=== PATIENT | female | born 1940 | race Caucasian/White ===

== ENCOUNTER 2015-12-17 09:00 | Inpatient (IN) | payer MEDICAID, OTHER ==
[~2015-12-17] VITALS: Ht 152.4 cm; Wt 64.0 kg
[2016-02-24] MEDS ORDERED: Metronidazole 500 MG in NS 100 ML IVPB SCH (07:00)
[2016-02-25] MEDS ORDERED: D5-NS + KCL 20 MEQ 1,000 ML IV SCH (07:00)
[2016-02-25] MEDS ORDERED: CEFAZOLIN 2 GM/50 ML (PMX) 50 ML IVPB SCH (07:00)
[2016-06-08] VITALS (13 sets, daily range): BP systolic 127–173; BP diastolic 58–97; PULSE 45–96; RESP 0–34; Ht 152.4 cm; Wt 64.0 kg
[2016-06-08] MEDS ORDERED: D5-NS + KCL 20 MEQ 1,000 ML IV SCH (08:00)
[2016-06-08] MEDS ORDERED: CEFAZOLIN 2 GM/50 ML (PMX) 50 ML IVPB ONE (08:00)
[2016-06-08] MEDS ORDERED: metroNIDAZOLE 500 MG/NS (PMX) 100 ML IVPB ONE ×2 (08:00→10:04)
[2016-06-08] MEDS ORDERED: ATOR80TA75 PO (09:04)
[2016-06-08] MEDS ORDERED: GLU5XL PO (09:04)
[2016-06-08] MEDS ORDERED: FOLI-49 PO (09:04)
[2016-06-08] MEDS ORDERED: LISI-313 PO (09:04)
[2016-06-08] MEDS ORDERED: QUET25TA26 PO (09:04)
[2016-06-08] MEDS ORDERED: METF1000 PO (09:04)
[2016-06-08] MEDS ORDERED: FER325 PO (09:04)
[2016-06-08] MEDS ORDERED: ATEN-51 PO (09:04)
[2016-06-08] MEDS ORDERED: MIDAZOLAM 1 MG/ML 2 ML INJ ONE (09:48)
[2016-06-08] MEDS ORDERED: CEFAZOLIN 1 GM INJ ONE ×2 (10:04→13:17)
[2016-06-08] MEDS ORDERED: ROCURONIUM 50 MG INJ ONE (10:04)
[2016-06-08] MEDS ORDERED: PROPOFOL 100 ML ONE (10:04)
[2016-06-08] MEDS ORDERED: METHYLENE BLUE 1% 10 ML INJ ONE ×2 (10:14)
[2016-06-08] MEDS ORDERED: VASOPRESSIN 20 UNITS INJ ONE (10:14)
[2016-06-08] MEDS ORDERED: THROMBIN 5000 UNIT VIAL ONE (10:14)
--- NOTE | 2016-06-08 11:17 | HP ---
Date/Time of Note Date/Time of Note DATE: 06/08/16 TIME: 11:16 Assessment/Plan VTE Prophylaxis VTE Prophylaxis Intervention: SCD's Lines/Catheters [facility]from [facility] Saline Lock HPI/ROS Admit Date/Time Admit Date/Time Jun 08, 2016 at 05:37 ROS Isaiah Flynn M.D. 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 Medical history/ROS: DM. Surgical history: Umbilical hernia 7 yrs ago. Flu no, declined, Pneumococcal no, declined Colonoscopy: yes, gardisil Colonoscopy Medications: 10/26/15 atorvastatin 80 mg tablet 1 tablet by mouth DAILY 10/26/15 ferrous sulfate 325 mg (65 mg iron) tablet 1 tablet by mouth DAILY 11/18/15 Flagyl 250 mg tablet 1 tablet by mouth as directed 1 po qd x 2 days paty 10/26/15 folic acid 1 mg tablet 1 tablet by mouth DAILY 10/26/15 glipizide 10 mg tablet 1 tablet by mouth DAILY 11/18/15 Golytely 236 gram-22.74 gram-6.74 gram-5.86 gram oral solution 1 mL by mouth as directed Begin Bowel Prep on DECE 11/18/15 Levaquin 250 mg tablet 1 tablet by mouth as directed 1 po qd x 2 days paty 10/26/15 lisinopril 5 mg tablet 1 tablet by mouth DAILY 10/26/15 metformin 500 mg tablet 2 tablet by mouth DAILY 11/18/15 Barstow 10 mg-325 mg tablet 1 tablet by mouth Q8h HARD COPY RX ATTACHED 10/26/15 omeprazole 20 mg capsule,delayed release 1 capsule by mouth DAILY Allergies: No active allergies recorded Family History: Noncontributory Social History: Noncontributory Review of Systems: Negative except for above noted Physical Examination Vitals (06/06/2016): Weight 144, Height 58.75, BP 130/80, BMI 30.1. General: Alert. HEENT: Pupils are equal, round, reactive to light and accommodation. Neck: Supple with no masses of lymphadenopathy. Breast: Deferred due to recent examination and responsibility of primary care physician. Chest: Clear to auscultation and percussion with no rales, ronchi, or wheeze. Heart: Normal rhythm with no murmur. Abdominal exam: nontender, nondistended, no masses, no ascites. Pelvic exam: Uterus enlarged and globular, no masses or cul-de-sac nodularity noted Rectal: confirmatory with pelvic exam. Neurological: Grossly intact Assessment: endometrial cancer stage to be determined Plan: Laparoscopic Type 2 Hyst, BSO, Pelvic and Aortic LND . All risks and benefits of this procedure have been discussed in detail with the patient, as well as alternative treatment strategies and their implications. The patient is aware that there is some possibility of a blood transfusion and its associated risks and benefits. She wishes to proceed and gives her informed consent. Isaiah Flynn M.D. PMH/Family/Social Social History Smoking Status: Never smoker Exam/Review of Systems Vital Signs Vitals Vital Signs Date Time Temp Pulse Resp B/P Pulse Ox O2 Delivery O2 Flow Rate FiO2 06/08/16 09:18 97.6 70 18 168/76 99 Room Air Medications Medications Current Medications Potassium Chloride/Dextrose/ Sod Cl (D5-NS + KCl 20 Meq) 1,000 ml @ 100 mls/hr Q10H IV ; Start 06/08/16 at 08:00; Stop 06/08/16 at 17:59 ISAIAH FLYNN MD Jun 08, 2016 11:17
--- NOTE | 2016-06-08 11:18 | HPN ---
Date/Time of Note Date/Time of Note DATE: 06/08/16 TIME: 11:17 Interval H&P Admission Note Pt. seen H&P reviewed: No system changes NONA MORENO MD Jun 08, 2016 11:18
[2016-06-08] MEDS ORDERED: ROPIVACAINE 0.2% 20 ML VIAL ONE (11:48)
[2016-06-08] MEDS ORDERED: ACETAMINOPHEN 1000MG/100ML IV 100 ML ONE (13:17)
[2016-06-08] MEDS ORDERED: morphine SULFATE/PF (10 MG/10 ML) INJ ONE (14:15)
[2016-06-08] MEDS ORDERED: NALBUPHINE HCL (10 MG/1 ML) INJ IV PRN (15:30)
[2016-06-08] MEDS ORDERED: MEPERIDINE 25 MG INJ IV PRN (15:30)
[2016-06-08] MEDS ORDERED: NALOXONE (0.4 MG/ML) INJ IV PRN (15:30)
[2016-06-08] MEDS ORDERED: HYDROmorphONE 1 MG/ML SYG IV PRN ×2 (15:30)
[2016-06-08] MEDS ORDERED: morphine 4 MG/ML VIAL IV PRN (15:30)
[2016-06-08] MEDS ORDERED: LABETALOL HCL 20MG INJ IV PRN (15:30)
[2016-06-08] MEDS ORDERED: ONDANSETRON 4 MG INJ IV PRN ×2 (15:30→16:00)
[2016-06-08] MEDS ORDERED: traMADol 50 MG TAB PO PRN (15:30)
[2016-06-08] MEDS ORDERED: EPHEDrine SULFATE 50 MG/5 ML SYG IV PRN (15:30)
[2016-06-08] MEDS ORDERED: hydrALAzine 20 MG INJ IV PRN (15:30)
[2016-06-08] MEDS ORDERED: HALOPERIDOL 5 MG INJ IV PRN (15:30)
[2016-06-08] MEDS ORDERED: ALBUMIN HUMAN 5% 250 ML IV PRN (15:30)
[2016-06-08] MEDS ORDERED: DIPHENHYDRAMINE 50 MG INJ IV PRN ×2 (15:30)
[2016-06-08] MEDS ORDERED: morphine 2 MG INJ IV PRN (15:30)
[2016-06-08 16:32] LABS: ADD SCAN DIFF NO
[2016-06-08 16:34] LABS: ABNORMAL IP MESSAGE 1; BASOPHILS % 0.1 % (0.0-2.0); EOSINOPHILS % 0.5 % (0.0-7.0); HEMATOCRIT 28.7 % (37.0-47.0); HEMOGLOBIN 9.1 g/dl (12.0-16.0); LYMPHOCYTES # 0.6 10^3/ul (0.8-2.9); LYMPHOCYTES % 7.6 % (15.0-51.0); MEAN CORPUSCULAR HGB CONC 31.7 g/dl (32.0-37.0); MEAN PLATELET VOLUME 9.9 fl (7.4-10.4); MONOCYTE # 0.4 10^3/ul (0.3-0.9); MONOCYTES % 4.7 % (0.0-11.0); NEUTROPHIL # 6.5 10^3/ul (1.6-7.5); NEUTROPHILS % 86.7 % (39.0-77.0); PLATELET COUNT 101 10^3/UL (140-415); RED CELL DISTRIBUTION WIDTH 16.2 % (11.5-14.5); WHITE BLOOD COUNT 7.5 10^3/ul (4.8-10.8)
[2016-06-08] MEDS: D5-LR + KCL 20 MEQ 1,000 ML IV SCH (17:56)
[2016-06-08] MEDS: CEFAZOLIN 1 GM/50 ML (PMX) 50 ML IVPB SCH (18:00)
[2016-06-08 18:17] LABS: CALCIUM 7.7 mg/dl (8.4-10.2); CREATININE 0.78 mg/dl (0.44-1.00); POTASSIUM 4.1 mmol/L (3.5-5.1)
[2016-06-08] MEDS ORDERED: GLUCOSE GEL 15 GRAM TUBE PO PRN ×2 (19:00)
[2016-06-08] MEDS ORDERED: DEXTROSE 50% 50 ML SYRINGE IV PRN ×2 (19:00)
[2016-06-08] MEDS ORDERED: GLUCAGON 1 MG INJ IM PRN (19:00)
[2016-06-08] MEDS ORDERED: GLUCOSE GEL 15 GRAM TUBE BUCCAL PRN (19:00)
--- NOTE | 2016-06-08 19:01 | CONS ---
DATE OF ADMISSION: 06/08/2016 DATE OF CONSULTATION: 06/08/2016 TYPE OF CONSULTATION: Medical consult note. CHIEF COMPLAINT: A 76-year-old female status post hysterectomy for endometrial cancer, presumably s tage IV. This is a medical consult note. 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 Most of the informatio n obtained from the chart documentation as the patient is presently postop and unable to provide a f ull HPI. The patient a few hours ago underwent a hysterectomy. The patient is presently on pain co ntrol medications with morphine and tramadol. She is on IV fluids as well. A full review of system s could not be obtained. She underwent a pelvic aortic lymph node dissection, laparoscopic type 2, hysterectomy, BSO. When the patient was in the operating room today, she did have some symptoms of bradycardia, heart rate went down to the 40s. Presently the heart rate is stable. PAST MEDICAL HISTORY: As stated above. ALLERGIES: NO KNOWN DRUG ALLERGIES. HOME MEDICINES: 1. Ferrous sulfate 325 mg b.i.d. 2. Atenolol 25 mg daily. 3. Atorvastatin 80 mg at bedtime. 5. Lisinopril 5 mg daily. 6. Seroquel 25 mg at bedtime. 7. Glipizide XL 10 mg daily. 8. Metformin 1000 mg with breakfast. 9. Folic acid 1 mg daily. PAST SURGICAL HISTORY: She had an umbilical hernia repair 7 years ago. SOCIAL HISTORY: Noncontributory. FAMILY HISTORY: Noncontributory. PHYSICAL EXAMINATION: VITAL SIGNS: T-max 98.5, pulse 47 to 64, respirations 16 to 20, blood pressure 128 to 144 systolic over 69 to ____diastolic, saturating at 98% on simple mask. GENERAL: The patient is lying in bed, simple mask in place, lethargic, but no acute distress. HEENT: Pupils equal, round, react to light. Extraocular muscles intact. NECK: Supple, no thyromegaly. LUNGS: Clear to auscultation bilaterally. CARDIOVASCULAR: S1, S2 heard. No rubs or gallops. ABDOMEN: Nondistended hypoactive bowel sounds. Incision is covered in bandages, appear to be clean , dry, and intact. MUSCULOSKELETAL: No lower extremity edema bilaterally. NEUROLOGIC: No focal deficits. LABORATORIES: Basic metabolic panel was normal. CBC is normal, including hemoglobin 9.1, hematocri t 28.7, platelets are 101. ASSESSMENT AND PLAN: A 76-year-old female status post pelvic and aortic lymph node dissection, hyst erectomy, bilateral salpingo-oophorectomy for endometrial cancer stage IV. 1. Status post surgical resection for endometrial cancer. Again, follow up postop recommendations from primary care team and NURSE EXECUTIVE/ONC team, which include pain control medications, IV fluids and labs and any physical therapy. 2. Essential hypertension. Blood pressure is presently stable. Continue to monitor for now. Cons ider restarting some of the patient's home medicines as well, although will hold JOHNATHAN inhibitor for n ow. 3. Type 2 diabetes, again continue sliding scale insulin, hold her p.o. diabetic medications from [facility]. 4. History of coronary artery disease. Continue to monitor for now. 5. History of prior stroke, no apparent present issues. Continue to monitor for now. 6. History of atrial fibrillation. Continue monitoring heart rate on telemetry monitoring. 7. Gastrointestinal prophylaxis. Add low-dose H2 mariana. 8. Deep venous thrombosis prophylaxis. Consider sequential compression devices. We will continue to follow along with you. Dictated By: MISTI MUNOZ Conf#: [id number] DID#: [id number]
[2016-06-08] MEDS ORDERED: INSULIN ASPART [NOVOLOG] 3 ML PEN SC SCH (21:00)
[2016-06-08] MEDS: INSULIN ASPART [NOVOLOG] 3 ML PEN SC SCH (21:11)
[2016-06-08] MEDS ORDERED: SOD CHLORIDE 0.9% 1,000 ML IV ONE (22:30)
[2016-06-08] MEDS: INSULIN GLARGINE [LANtus] 3 ML PEN SC SCH (22:33)
[2016-06-08] MEDS: morphine 2 MG INJ IV PRN (22:59)
[2016-06-09] VITALS (26 sets, daily range): BP systolic 107–168; BP diastolic 51–124; PULSE 57–87; RESP 11–27
[2016-06-09] MEDS: CEFAZOLIN 1 GM/50 ML (PMX) 50 ML IVPB SCH ×3 (01:21→12:31)
[2016-06-09] MEDS ORDERED: ACCU-CHEK XX SCH (02:00)
[2016-06-09] MEDS: ACCU-CHEK XX SCH (02:26)
[2016-06-09] MEDS ORDERED: INSULIN ASPART [NOVOLOG] 3 ML PEN SC ONE (02:30)
[2016-06-09] MEDS: D5-LR + KCL 20 MEQ 1,000 ML IV SCH ×3 (03:03→19:22)
[2016-06-09 05:35] LABS: ADD SCAN DIFF NO
[2016-06-09 05:52] LABS: BASOPHILS % 0.1 % (0.0-2.0); HEMOGLOBIN 12.1 g/dl (12.0-16.0); LYMPHOCYTES # 0.7 10^3/ul (0.8-2.9); LYMPHOCYTES % 5.7 % (15.0-51.0); MEAN CORPUSCULAR HEMOGLOBIN 25.4 pg (29.0-33.0); MEAN CORPUSCULAR VOLUME 81.9 fl (82.0-101.0); MEAN PLATELET VOLUME 11.2 fl (7.4-10.4); MONOCYTE # 0.7 10^3/ul (0.3-0.9); MONOCYTES % 5.3 % (0.0-11.0); NEUTROPHILS % 88.6 % (39.0-77.0); PLATELET COUNT 150 10^3/UL (140-415); RED BLOOD COUNT 4.76 10^6/ul (4.20-5.40); RED CELL DISTRIBUTION WIDTH 16.3 % (11.5-14.5); WHITE BLOOD COUNT 12.4 10^3/ul (4.8-10.8)
[2016-06-09 06:05] LABS: POTASSIUM 4.8 mmol/L (3.5-5.1)
[2016-06-09 06:08] LABS: CREATININE 0.96 mg/dl (0.44-1.00)
[2016-06-09 06:09] LABS: CALCIUM 7.7 mg/dl (8.4-10.2)
[2016-06-09] MEDS: FOLIC ACID 1 MG TAB PO SCH (09:39)
[2016-06-09] MEDS: FAMOTIDINE 20 MG INJ IV SCH (09:39)
--- NOTE | 2016-06-09 09:51 | OPPN ---
Date/Time of Note Date/Time of Note DATE: 06/09/16 TIME: 09:45 Anesthesia Follow up Anesthesia Follow up Respiratory function: WNL Cardiovascular function: WNL Comments POD#1 CHIEF COMPLAINT: A 76-year-old female status post hysterectomy for endometrial cancer, presumably stage IV. 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 Most of the information obtained from the chart documentation as the patient is presently postop and unable to provide a full HPI. The patient a few hours ago underwent a hysterectomy. The patient is presently on pain control medications with morphine and tramadol. She is on IV fluids as well. A full review of systems could not be obtained. She underwent a pelvic aortic lymph node dissection, laparoscopic type 2, hysterectomy, BSO. When the patient was in the operating room today, she did have some symptoms of bradycardia, heart rate went down to the 40s. Presently the heart rate is stable. PAST MEDICAL HISTORY: As stated above. ALLERGIES: NO KNOWN DRUG ALLERGIES. HOME MEDICINES: 1. Ferrous sulfate 325 mg b.i.d. 2. Atenolol 25 mg daily. 3. Atorvastatin 80 mg at bedtime. 5. Lisinopril 5 mg daily. 6. Seroquel 25 mg at bedtime. 7. Glipizide XL 10 mg daily. 8. Metformin 1000 mg with breakfast. 9. Folic acid 1 mg daily. PAST SURGICAL HISTORY: She had an umbilical hernia repair 7 years ago. SOCIAL HISTORY: Noncontributory. FAMILY HISTORY: Noncontributory. She went under combined Epidural-General Anesthesia for Laparoscopic assisted Hysterectomy and Bilateral salpingo-Oophorectomies and Pelvic and para Aortic lymph node dissection. Epidural Duramorph was given for post-op pain control. Patient was admitted in ICU post-op. She is very comfortably sleeping in bed, no pain. No pain medicine was given yesterday, vital signs are stable she is afebrile. She had no apnea. no nausea or vomiting reported, she also tolerated clear liquid diet today. No sensory and motor loss, catheter site clean and intact no erythema noted.No itching reported. Patient will be followed up by the primary team. JULIOCESAR GUTIERREZ MD Jun 09, 2016 09:51
[2016-06-09] MEDS: INSULIN ASPART [NOVOLOG] 3 ML PEN SC SCH ×3 (12:33→21:00)
--- NOTE | 2016-06-09 15:50 | CONS ---
Date/Time of Note Date/Time of Note DATE: 06/09/16 TIME: 15:48 Consult Date/Type/Reason Admit Date/Time Jun 08, 2016 at 05:37 Initial Consult Date Subjective No acute events overnight, tolerating liquid diet. Objective Vital Signs Date Time Temp Pulse Resp B/P Pulse Ox O2 Delivery O2 Flow Rate FiO2 06/09/16 14:00 68 16 124/61 95 Nasal Cannula 06/09/16 10:30 98.2 06/09/16 09:03 2.0 06/09/16 01:51 27 Intake and Output 06/08/16 06/08/16 06/09/16 15:00 23:00 07:00 Intake Total 650 ml 1750 ml Output Total 500 ml 120 ml 221 ml Balance -500 ml 530 ml 1529 ml Exam GENERAL: The patient is lying in bed,no acute distress. HEENT: Pupils equal, round, react to light. Extraocular muscles intact. NECK: Supple, no thyromegaly. LUNGS: Clear to auscultation bilaterally. CARDIOVASCULAR: S1, S2 heard. No rubs or gallops. ABDOMEN: Nondistended hypoactive bowel sounds. Incision is covered in bandages , appear to be clean, dry, and intact. MUSCULOSKELETAL: No lower extremity edema bilaterally. NEUROLOGIC: No focal deficits. Results/Medications Result Diagram: 06/09/16 0400 06/09/16 0400 Results 24 hrs Laboratory Tests Test 06/08/16 16:20 06/08/16 17:36 06/08/16 20:58 06/08/16 22:32 White Blood Count 7.5 Red Blood Count 3.50 L Hemoglobin 9.1 L Hematocrit 28.7 L Mean Corpuscular Volume 82.0 Mean Corpuscular Hemoglobin 26.0 L Mean Corpuscular Hemoglobin Concent 31.7 L Red Cell Distribution Width 16.2 H Platelet Count 101 L Mean Platelet Volume 9.9 Neutrophils % 86.7 H Lymphocytes % 7.6 L Monocytes % 4.7 Eosinophils % 0.5 Basophils % 0.1 Nucleated Red Blood Cells % 0.0 Neutrophils # 6.5 Lymphocytes # 0.6 L Monocytes # 0.4 Eosinophils # 0.0 Basophils # 0.0 Nucleated Red Blood Cells # 0.0 Sodium Level 136 Potassium Level 4.1 Chloride Level 106 Carbon Dioxide Level 25 Anion Gap 9 Blood Urea Nitrogen 20 Creatinine 0.78 Glucose Level 184 Calcium Level 7.7 L Bedside Glucose 229 H 254 H Test 06/09/16 02:22 06/09/16 04:00 06/09/16 12:31 Bedside Glucose 224 H 193 White Blood Count 12.4 #H Red Blood Count 4.76 # Hemoglobin 12.1 # Hematocrit 39.0 # Mean Corpuscular Volume 81.9 L Mean Corpuscular Hemoglobin 25.4 L Mean Corpuscular Hemoglobin Concent 31.0 L Red Cell Distribution Width 16.3 H Platelet Count 150 # Mean Platelet Volume 11.2 H Neutrophils % 88.6 H Lymphocytes % 5.7 L Monocytes % 5.3 Eosinophils % 0.0 Basophils % 0.1 Nucleated Red Blood Cells % 0.0 Neutrophils # 11.0 H Lymphocytes # 0.7 L Monocytes # 0.7 Eosinophils # 0.0 Basophils # 0.0 Nucleated Red Blood Cells # 0.0 Sodium Level 138 Potassium Level 4.8 Chloride Level 108 Carbon Dioxide Level 23 Anion Gap 12 Blood Urea Nitrogen 21 H Creatinine 0.96 Glucose Level 248 H Calcium Level 7.7 L Medications Current Medications Diphenhydramine HCl (Benadryl) 25 mg Q4H PRN IV PRURITUS Last administered on 07:38; Admin Dose 25 MG; Start 06/08/16 at 15:30 Nalbuphine HCl (Nubain) 10 mg Q4H PRN IV PRURITUS; Start 06/08/16 at 15:30 Naloxone HCl 0.2 mg 0.2 mg Q2M PRN IV FOR RESP RATE 8 OR LESS; Start 06/08/16 at 15:30 Potassium Cl/ Dextrose/Lact Ringer's (D5-Lr + KCl 20 Meq) 1,000 ml @ 100 mls/ hr Q10H IV Last administered on 06/09/16 03:03; Admin Dose 100 MLS/HR; Start 06/08/16 at 16:00 Ondansetron HCl 4 mg 4 mg Q6H PRN IV NAUSEA AND/OR VOMITING Last administered on 06/08/16 23:06; Admin Dose 4 MG; Start 06/08/16 at 16:00 Cefazolin Sodium (Ancef 1 Gm/50 ml (Pmx)) 50 ml @ 100 mls/hr Q6 IVPB Last administered on 06/09/16 12:31; Admin Dose 100 MLS/HR; Start 06/08/16 at 18:00 ; Stop 06/09/16 at 17:59 Tramadol HCl (Ultram) 50 mg Q6H PRN PO PAIN; Start 06/08/16 at 15:30 Morphine Sulfate (morphine) 2 mg Q3H PRN IV PAIN Last administered on 22:59; Admin Dose 2 MG; Start 06/08/16 at 15:30 Diagnostic Test (Pha) (Accu-Chek) 1 ea 02 XX Last administered on 06/09/16 02: 26; Admin Dose 1 EA; Start 06/09/16 at 02:00 Miscellaneous Information 1 ea NOTE XX ; Start 06/08/16 at 19:00 Glucose (Glutose) 15 gm Q15M PRN PO DECREASED GLUCOSE; Start 06/08/16 at 19:00 Glucose (Glutose) 22.5 gm Q15M PRN PO DECREASED GLUCOSE; Start 06/08/16 at 19: 00 Dextrose (D50w Syringe) 25 ml Q15M PRN IV DECREASED GLUCOSE; Start 06/08/16 at 19:00 Dextrose (D50w Syringe) 50 ml Q15M PRN IV DECREASED GLUCOSE; Start 06/08/16 at 19:00 Glucagon (Glucagen) 1 mg Q15M PRN IM DECREASED GLUCOSE; Start 06/08/16 at 19:00 Glucose (Glutose) 15 gm Q15M PRN BUCCAL DECREASED GLUCOSE; Start 06/08/16 at 19 :00 Famotidine (Pepcid Iv) 20 mg DAILY IV Last administered on 06/09/16 09:39; Admin Dose 20 MG; Start 06/09/16 at 09:00 Folic Acid (Folic Acid) 1 mg DAILY PO Last administered on 06/09/16 09:39; Admin Dose 1 MG; Start 06/09/16 at 09:00 Insulin Glargine (Lantus) 10 unit DAILY@20 SC Last administered on 06/08/16 22 :33; Admin Dose 10 UNIT; Start 06/08/16 at 21:30 Clonidine (Catapres) 0.1 mg Q6H PRN PO SBP > 160; Start 06/09/16 at 01:00 Assessment/Plan Chief Complaint/Hosp Course ASSESSMENT AND PLAN: 76-year-old female status post pelvic and aortic lymph node dissection, hysterectomy, bilateral salpingo-oophorectomy for endometrial cancer stage IV. 1. Status post surgical resection for endometrial cancer - POD # 1. 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 2. Essential hypertension. Blood pressure is presently stable. - Continue to monitor for now. - Consider restarting some of the patient's home medicines as well, although will hold JOHNATHAN inhibitor for now. 3. Type 2 diabetes - FS stable - again continue sliding scale insulin, lantus for now - holding her p.o. diabetic medications from home. 4. History of coronary artery disease. - Continue to monitor for now. 5. History of prior stroke, no apparent present issues. - Continue to monitor for now. 6. History of atrial fibrillation - HR stable - Continue monitoring heart rate on telemetry monitoring. 7. Gastrointestinal prophylaxis. - H2 mariana. 8. Deep venous thrombosis prophylaxis - Sequential compression devices. We will continue to follow along with you. Critical care time spent today = 40 min. Problems: MISTI MADISON Jun 09, 2016 15:50
[2016-06-09] MEDS: INSULIN GLARGINE [LANtus] 3 ML PEN SC SCH (20:16)
[2016-06-09] MEDS ORDERED: ALBUMIN HUMAN 25% 100 ML IV ONE (22:00)
--- NOTE | 2016-06-09 22:23 | PN ---
Date/Time of Note Date/Time of Note DATE: 06/09/16 TIME: 22:20 Assessment/Plan VTE Prophylaxis VTE Prophylaxis Intervention: SCD's Lines/Catheters IV [facility] Peripheral IV Urinary Cath still in place: Yes Assessment/Plan Chief Complaint/Hosp Course endometrial cancer Problems: Assessment/Plan transfer and adv diet Subjective 24 Hr Interval Summary Free Text/Dictation S- + flatus and tolerating current diet. Minimally OOB. O- Resp- even and effortless CVS- NSR Abd- soft NT Ext- NT no edema A- doing well P- transfer 4W or 6W and adv diet Exam/Review of Systems Vital Signs Vitals Vital Signs Date Time Temp Pulse Resp B/P Pulse Ox O2 Delivery O2 Flow Rate FiO2 06/09/16 20:00 65 06/09/16 19:45 97 2.0 27 06/09/16 18:00 18 162/85 06/09/16 17:00 Nasal Cannula 06/09/16 16:00 98.5 Intake and Output 06/08/16 06/08/16 06/09/16 15:00 23:00 07:00 Intake Total 650 ml 1850 ml Output Total 500 ml 120 ml 221 ml Balance -500 ml 530 ml 1629 ml Results Result Diagram: 06/09/16 0400 06/09/16 0400 Results 24 hrs Laboratory Tests Test 06/08/16 22:32 06/09/16 02:22 06/09/16 04:00 06/09/16 12:31 Bedside Glucose 254 H 224 H 193 White Blood Count 12.4 #H Red Blood Count 4.76 # Hemoglobin 12.1 # Hematocrit 39.0 # Mean Corpuscular Volume 81.9 L Mean Corpuscular Hemoglobin 25.4 L Mean Corpuscular Hemoglobin Concent 31.0 L Red Cell Distribution Width 16.3 H Platelet Count 150 # Mean Platelet Volume 11.2 H Neutrophils % 88.6 H Lymphocytes % 5.7 L Monocytes % 5.3 Eosinophils % 0.0 Basophils % 0.1 Nucleated Red Blood Cells % 0.0 Neutrophils # 11.0 H Lymphocytes # 0.7 L Monocytes # 0.7 Eosinophils # 0.0 Basophils # 0.0 Nucleated Red Blood Cells # 0.0 Sodium Level 138 Potassium Level 4.8 Chloride Level 108 Carbon Dioxide Level 23 Anion Gap 12 Blood Urea Nitrogen 21 H Creatinine 0.96 Glucose Level 248 H Calcium Level 7.7 L Test 06/09/16 18:08 06/09/16 20:15 Bedside Glucose 93 121 Medications Medications Current Medications Diphenhydramine HCl (Benadryl) 25 mg Q4H PRN IV PRURITUS Last administered on 07:38; Admin Dose 25 MG; Start 06/08/16 at 15:30 Nalbuphine HCl (Nubain) 10 mg Q4H PRN IV PRURITUS; Start 06/08/16 at 15:30 Naloxone HCl (Narcan) 0.2 mg Q2M PRN IV FOR RESP RATE 8 OR LESS; Start at 15:30 Ondansetron HCl (Zofran Inj) 4 mg Q6H PRN IV NAUSEA AND/OR VOMITING Last administered on 06/08/16 23:06; Admin Dose 4 MG; Start 06/08/16 at 16:00 Tramadol HCl (Ultram) 50 mg Q6H PRN PO PAIN; Start 06/08/16 at 15:30 Morphine Sulfate (morphine) 2 mg Q3H PRN IV PAIN Last administered on 22:59; Admin Dose 2 MG; Start 06/08/16 at 15:30 Diagnostic Test (Pha) (Accu-Chek) 1 ea 02 XX Last administered on 06/09/16 02: 26; Admin Dose 1 EA; Start 06/09/16 at 02:00 Miscellaneous Information 1 ea NOTE XX ; Start 06/08/16 at 19:00 Glucose (Glutose) 15 gm Q15M PRN PO DECREASED GLUCOSE; Start 06/08/16 at 19:00 Glucose (Glutose) 22.5 gm Q15M PRN PO DECREASED GLUCOSE; Start 06/08/16 at 19: 00 Dextrose (D50w Syringe) 25 ml Q15M PRN IV DECREASED GLUCOSE; Start 06/08/16 at 19:00 Dextrose (D50w Syringe) 50 ml Q15M PRN IV DECREASED GLUCOSE; Start 06/08/16 at 19:00 Glucagon (Glucagen) 1 mg Q15M PRN IM DECREASED GLUCOSE; Start 06/08/16 at 19:00 Glucose (Glutose) 15 gm Q15M PRN BUCCAL DECREASED GLUCOSE; Start 06/08/16 at 19 :00 Famotidine (Pepcid Iv) 20 mg DAILY IV Last administered on 06/09/16 09:39; Admin Dose 20 MG; Start 06/09/16 at 09:00 Folic Acid (Folic Acid) 1 mg DAILY PO Last administered on 06/09/16 09:39; Admin Dose 1 MG; Start 06/09/16 at 09:00 Insulin Glargine (Lantus) 10 unit DAILY@20 SC Last administered on 06/09/16 20 :16; Admin Dose 10 UNIT; Start 06/08/16 at 21:30 Clonidine 0.1 mg 0.1 mg Q6H PRN PO SBP > 160 Last administered on 06/09/16 21: 47; Admin Dose 0.1 MG; Start 06/09/16 at 01:00 Potassium Cl/ Dextrose/Lact Ringer's 1,000 ml @ 50 mls/hr Q20H IV Last administered on 06/09/16 19:22; Admin Dose 50 MLS/HR; Start 06/09/16 at 18:00 Albumin Human (Albumin Human 25%) 100 ml @ 100 mls/hr ONCE ONCE IV Last administered on 06/09/16 21:49; Admin Dose 100 MLS/HR; Start 06/09/16 at 22:00 ; Stop 06/09/16 at 22:59 NONA MORENO MD Jun 09, 2016 22:23
[2016-06-10] VITALS (12 sets, daily range): BP systolic 119–176; BP diastolic 60–117; PULSE 63–75; RESP 18–31
[2016-06-10] MEDS: ACCU-CHEK XX SCH (00:49)
[2016-06-10] MEDS ORDERED: FUROSEMIDE 20 MG INJ IV ONE (05:30)
[2016-06-10 05:58] LABS: ADD SCAN DIFF NO
[2016-06-10 06:07] LABS: BASOPHILS % 0.1 % (0.0-2.0); EOSINOPHILS # 0.1 10^3/ul (0.0-0.5); EOSINOPHILS % 1.1 % (0.0-7.0); HEMATOCRIT 37.9 % (37.0-47.0); HEMOGLOBIN 11.8 g/dl (12.0-16.0); LYMPHOCYTES % 10.7 % (15.0-51.0); MEAN CORPUSCULAR HEMOGLOBIN 25.6 pg (29.0-33.0); MEAN CORPUSCULAR HGB CONC 31.1 g/dl (32.0-37.0); MEAN CORPUSCULAR VOLUME 82.2 fl (82.0-101.0); MEAN PLATELET VOLUME 11.1 fl (7.4-10.4); MONOCYTE # 0.6 10^3/ul (0.3-0.9); MONOCYTES % 6.5 % (0.0-11.0); NEUTROPHIL # 7.6 10^3/ul (1.6-7.5); NEUTROPHILS % 81.3 % (39.0-77.0); PLATELET COUNT 122 10^3/UL (140-415); RED BLOOD COUNT 4.61 10^6/ul (4.20-5.40); RED CELL DISTRIBUTION WIDTH 16.6 % (11.5-14.5); WHITE BLOOD COUNT 9.4 10^3/ul (4.8-10.8)
[2016-06-10 06:22] LABS: POTASSIUM 4.3 mmol/L (3.5-5.1)
[2016-06-10 06:25] LABS: CREATININE 0.95 mg/dl (0.44-1.00)
[2016-06-10] MEDS: FAMOTIDINE 20 MG INJ IV SCH (08:44)
[2016-06-10] MEDS: hydrALAzine 20 MG INJ IV PRN (08:44)
[2016-06-10] MEDS: FOLIC ACID 1 MG TAB PO SCH (08:45)
[2016-06-10] MEDS: INSULIN ASPART [NOVOLOG] 3 ML PEN SC SCH ×4 (08:50→20:54)
[2016-06-10] MEDS: morphine 2 MG INJ IV PRN (09:41)
[2016-06-10] MEDS: D5-LR + KCL 20 MEQ 1,000 ML IV SCH (11:45)
--- NOTE | 2016-06-10 13:07 | CONS ---
Date/Time of Note Date/Time of Note DATE: 06/10/16 TIME: 13:06 Consult Date/Type/Reason Admit Date/Time Jun 08, 2016 at 05:37 Objective Vital Signs Date Time Temp Pulse Resp B/P Pulse Ox O2 Delivery O2 Flow Rate FiO2 06/10/16 11:30 98.0 75 19 132/60 98 06/10/16 09:00 Nasal Cannula 2.0 06/10/16 05:29 27 Intake and Output 06/09/16 06/09/16 06/10/16 15:00 23:00 07:00 Intake Total 990 ml 630 ml 400 ml Output Total 224 ml 186 ml 725 ml Balance 766 ml 444 ml -325 ml Exam GENERAL: The patient is lying in bed,no acute distress. HEENT: Pupils equal, round, react to light. Extraocular muscles intact. NECK: Supple, no thyromegaly. LUNGS: Clear to auscultation bilaterally. CARDIOVASCULAR: S1, S2 heard. No rubs or gallops. ABDOMEN: Nondistended hypoactive bowel sounds. Incision is covered in bandages , appear to be clean, dry, and intact. MUSCULOSKELETAL: No lower extremity edema bilaterally. NEUROLOGIC: No focal deficits. Results/Medications Result Diagram: 06/10/16 0543 06/10/16 0543 Results 24 hrs Laboratory Tests Test 06/09/16 18:08 06/09/16 20:15 06/10/16 05:43 06/10/16 07:54 Bedside Glucose 93 121 167 White Blood Count 9.4 # Red Blood Count 4.61 Hemoglobin 11.8 L Hematocrit 37.9 Mean Corpuscular Volume 82.2 Mean Corpuscular Hemoglobin 25.6 L Mean Corpuscular Hemoglobin Concent 31.1 L Red Cell Distribution Width 16.6 H Platelet Count 122 L Mean Platelet Volume 11.1 H Neutrophils % 81.3 H Lymphocytes % 10.7 L Monocytes % 6.5 Eosinophils % 1.1 Basophils % 0.1 Nucleated Red Blood Cells % 0.0 Neutrophils # 7.6 H Lymphocytes # 1.0 Monocytes # 0.6 Eosinophils # 0.1 Basophils # 0.0 Nucleated Red Blood Cells # 0.0 Sodium Level 136 Potassium Level 4.3 Chloride Level 107 Carbon Dioxide Level 27 Anion Gap 6 L Blood Urea Nitrogen 18 Creatinine 0.95 Glucose Level 163 Calcium Level 8.0 L Test 06/10/16 11:43 Bedside Glucose 132 Medications Current Medications Diphenhydramine HCl (Benadryl) 25 mg Q4H PRN IV PRURITUS Last administered on 07:38; Admin Dose 25 MG; Start 06/08/16 at 15:30 Nalbuphine HCl (Nubain) 10 mg Q4H PRN IV PRURITUS; Start 06/08/16 at 15:30 Naloxone HCl (Narcan) 0.2 mg Q2M PRN IV FOR RESP RATE 8 OR LESS; Start at 15:30 Ondansetron HCl (Zofran Inj) 4 mg Q6H PRN IV NAUSEA AND/OR VOMITING Last administered on 06/08/16 23:06; Admin Dose 4 MG; Start 06/08/16 at 16:00 Tramadol HCl (Ultram) 50 mg Q6H PRN PO PAIN; Start 06/08/16 at 15:30 Morphine Sulfate (morphine) 2 mg Q3H PRN IV PAIN Last administered on 09:41; Admin Dose 2 MG; Start 06/08/16 at 15:30 Diagnostic Test (Pha) (Accu-Chek) 1 ea 02 XX Last administered on 06/09/16 02: 26; Admin Dose 1 EA; Start 06/09/16 at 02:00 Miscellaneous Information 1 ea NOTE XX ; Start 06/08/16 at 19:00 Glucose (Glutose) 15 gm Q15M PRN PO DECREASED GLUCOSE; Start 06/08/16 at 19:00 Glucose (Glutose) 22.5 gm Q15M PRN PO DECREASED GLUCOSE; Start 06/08/16 at 19: 00 Dextrose (D50w Syringe) 25 ml Q15M PRN IV DECREASED GLUCOSE; Start 06/08/16 at 19:00 Dextrose (D50w Syringe) 50 ml Q15M PRN IV DECREASED GLUCOSE; Start 06/08/16 at 19:00 Glucagon (Glucagen) 1 mg Q15M PRN IM DECREASED GLUCOSE; Start 06/08/16 at 19:00 Glucose (Glutose) 15 gm Q15M PRN BUCCAL DECREASED GLUCOSE; Start 06/08/16 at 19 :00 Famotidine (Pepcid Iv) 20 mg DAILY IV Last administered on 06/10/16 08:44; Admin Dose 20 MG; Start 06/09/16 at 09:00 Folic Acid (Folic Acid) 1 mg DAILY PO Last administered on 06/10/16 08:45; Admin Dose 1 MG; Start 06/09/16 at 09:00 Insulin Glargine (Lantus) 10 unit DAILY@20 SC Last administered on 06/09/16 20 :16; Admin Dose 10 UNIT; Start 06/08/16 at 21:30 Clonidine 0.1 mg 0.1 mg Q6H PRN PO SBP > 160 Last administered on 06/10/16 07: 23; Admin Dose 0.1 MG; Start 06/09/16 at 01:00 Potassium Cl/ Dextrose/Lact Ringer's (D5-Lr + KCl 20 Meq) 1,000 ml @ 50 mls/hr Q20H IV Last administered on 06/10/16 11:45; Admin Dose 50 MLS/HR; Start 06/09 at 18:00 Hydralazine HCl (Apresoline) 10 mg Q4H PRN IV elevated bp Last administered on 06/10/16 08:44; Admin Dose 10 MG; Start 06/10/16 at 08:00 Assessment/Plan Chief Complaint/Hosp Course ASSESSMENT AND PLAN: 76-year-old female status post pelvic and aortic lymph node dissection, hysterectomy, bilateral salpingo-oophorectomy for endometrial cancer stage IV. 1. Status post surgical resection for endometrial cancer - POD # 2. - follow up postop recommendations from primary care team and OFFICE RN/ONC team, which include pain control medications, IV fluids and labs and any physical therapy. 2. Essential hypertension. Blood pressure is presently stable. - Continue to monitor for now. - Consider restarting some of the patient's home medicines as well, although will hold JOHNATHAN inhibitor for now. 3. Type 2 diabetes - FS stable - again continue sliding scale insulin, lantus for now - holding her p.o. diabetic medications from home. 4. History of coronary artery disease. - Continue to monitor for now. 5. History of prior stroke, no apparent present issues. - Continue to monitor for now. 6. History of atrial fibrillation - HR stable - Continue monitoring heart rate on telemetry monitoring. 7. Gastrointestinal prophylaxis. - H2 mariana. 8. Deep venous thrombosis prophylaxis - Sequential compression devices. We will continue to follow along with you. Critical care time spent today = 40 min. Problems: MISTI MADISON Jun 10, 2016 13:07
[2016-06-10] MEDS: INSULIN GLARGINE [LANtus] 3 ML PEN SC SCH (20:53)
--- NOTE | 2016-06-10 23:07 | OPR ---
Date/Time of Note Date/Time of Note DATE: 06/10/16 TIME: 23:06 Operative Report Free Text/Dictation OPERATIVE REPORT [facility] Name: Lisandra Coyle Medical Date: 06/08/16 Preoperative Diagnosis: 1-Endometrial cancer grade 1 2- Possible cervical involvement Postoperative Diagnosis: Endometrial cancer with final pathology pending Procedures: 1- Type 2 laparoscopic hysterectomy with bilateral salpingoophorectomy 2- Laparoscopic pelvic and aortic lymph node dissection 3- Minilaparotomy Surgeon: Dr. Flynn Beauty Shop Manager: Dr. Levy Anaesthesia: General with regional Indications for Procedure: This 76 year old patient had a grade 1 endometrial cancer without evidence of metastatic disease preoperatively but with a possible positive ECC and after discussions of options with risks and benefits it was determined that a laparoscopic hysterectomy type 2 with bilateral salpingoophorectomy and pelvic/aortic lymph node dissection would be completed for the purposes of treatment and possibly planning additional adjuvant therapy. The pelvic and LND was performed in lieu of final grading not being equivalent to preoperative D&C grade 18-25% of the time and frozen section not being more that 80% reliable in determining grade and depth of invasion; therefore complete staging is performed to determine postoperative management unless there is a significant contraindication. Intraoperative Findings and Summary of Procedure: Name: Lisandra Coyle Medical After placing the Trocars and exploration we noted and enlarged uterus with some fibroids with significant adhesions of the adnexia to the sidewalls. The TLH/BSO was then performed without incident but required somewhat of a ureteral dissection due to anatomic issues of the adnexia adherent to the sidewalls and uterine enlargement due to fibroids, with the laparoscopic LND being subsequently performed with a finding of grossly negative nodes pathology pending. The uterus was removed with a minilaparotomy due to a long narrow vagina. The patient will stay a minimum of one night to observe for recovery of from anesthesia and confirm stable hemoglobin and hematocrit with the necessity of confirmation of some GI recovery and probably need an addition night as well. Findings and Procedure: After being prepped and draped in the usual manner an EEA sizer and pneumo- occluder was inserted vaginally. A 5-millimeter trocar was then placed periumbilically without incident. Subsequently, we insufflated and placed two 12- millimeter trocars laterally and a 12-millimeter trocar suprapubically, as well as an additional 5-mm trocar cephlad to the umbilicus. At this time multiple pelvic adhesions were lysed with sharp dissection and the Omni if not adjacent to serosa. Subsequently we explored and noted a somewhat enlarged fibroid uterus with adnexia adherent to the sidewalls due to apparent inflammation and old scar tissue. Initially the right round ligament was cauterized and transected with the Thunderbeat and the retroperitoneal space further opened parallel to the IP ligament an laterally with the same devise. The right ureter was identified and due to the aforementioned distortion from adherent adnexia was dissected laterally with the Omni and the endo-dissector. After lateralizing the ureter the uterine artery was identified and cauterized and transected with the Thunderbeat adjacent to the hypogastric artery due to the uterine enlargement and hypervascularity and the intention to do a type 2 procedure lateral to the ureter. Hence the ureter was further dissected and the space developed and, a space was developed the [facility] and the right IP ligament was cauterized and transected with a Thunderbeat after which the uterus was retracted medially and the bladder flap was partly developed with the Gyrus bipolar cutting forceps and the Omni. We then used a 10-mm ratcheted endo-grasper placed through the 12-mm suprapubic trocar to manipulate the uterus and with the EEA sizer uterus was retracted and left round ligament was cauterized and transected with the Thunderbeat and the retroperitoneal space further opened parallel to the IP ligament an laterally with the same devise. The left ureter was identified and due to the aforementioned distortion was dissected laterally with the Omni and the endo- dissector as done contralaterally. After lateralizing the ureter the uterine artery was identified and cauterized with the Thunderbeat adjacent to the hypogastric artery and cut with the ureter visualized, after which the ureter was further dissected and the needed space developed. Hence, a space was developed in the broad ligament and the left IP ligament was cauterized and transected with a Thunderbeat after which the uterus was retracted medially, allowing development or the bladder flap uneventfully with a Thunderbeat and blunt dissection. Subsequently, the right uterine artery was transected distally with a Thunderbeat perpendicular to the distal lower uterine segment and the Cardinal ligament and utero-sacral ligament were both transected with an Omni and Thunderbeat parallel to the lower uterine segment and cervix. An identical series of steps were taken on the left side. The anterior and posterior colpotomies were accomplished with a Thunderbeat anteriorly and posteriorly, and continued around the sides as the specimen was not removed through the vagina as it was narrow. The vagina was closed with interrupted 0 Vicryl suture and continuous 2-0 v-lock suture. The 12-millimeter trocar site was minimally extended to 3-4 cm midline to a minilaparotomy with sharp dissection and an electrocautery and uterus was then the specimen was removed intact. The incision was partly closed with interrupted 0- Vicryl suture, after which the 12-millimeter trocar was reinserted. At this time the frozen section returned grade 1 uncertain depth of invasion and the pelvic and aortic LND were completed after confirming hemostasis. Initially a fan retractor was used for exposure and secured to the Dereck arm and all lymph node tissue adjacent to the right external Name: [facility] iliac artery and vein, hypogastric artery and vein, as well as obturator fossa were removed with sharp and blunt dissection, using the Thunderbeat or Gyrus bipolar Omni for hemostasis and lymphostasis. The rowdy tissue was grasped and subsequently placed under tractions with the Omni and the Thunderbeat then being used for the hemostasis and lymphostasis in the process of removal. The dissection was continued to include rowdy tissue adjacent to the common iliac vessels. The obturator nerve was identified and all adjacent rowdy tissue removed with blunt dissection, with the Thunderbeat or Gyrus bipolar Omni used for lymphostasis and hemostasis as needed. The fan retractors were adjusted in that a suprapubically placed fan retracted the broad ligament and ureter with ileum while the right lateral trocar was used for a fan to retract the cecum and ascending colon allowing any rowdy tissue adjacent to the vena cava, as well as aorto-caval nodes to be removed using identical technique. [employer] vessels were addressed with the Thunderbeat or Gyrus bipolar Omni. At this time we placed the fan retractors for contralateral exposure. Subsequently, all lymph node tissue adjacent to the left external iliac artery and vein, hypogastric artery and vein, as well as obturator fossa were removed with sharp and blunt dissection, the Thunderbeat or Gyrus bipolar Omni for hemostasis and lymphostasis, with a technique identical to the right side. The dissection was continued to include rowdy tissue adjacent to the common iliac vessels. Subsequently, the fan retractors were adjusted and any rowdy tissue adjacent to the aorta were dissected using similar technique. After irrigating and assuring hemostasis the 12 millimeter trocars were removed and the fascia was closed with 0-vicryl using an endo-close devise. The gas was removed and the skin of all sites then closed with subcutaneous 5-0 Monocryl suture. The EBL was 100cc and the patient tolerated the procedure well and left the OR in good condition. Isaiah Flynn M.D. ISAIAH FLYNN MD Jun 10, 2016 23:07
--- NOTE | 2016-06-10 23:13 | PN ---
Date/Time of Note Date/Time of Note DATE: 06/10/16 TIME: 23:10 Assessment/Plan VTE Prophylaxis VTE Prophylaxis Intervention: SCD's Lines/Catheters [facility] Peripheral IV Urinary Cath still in place: Yes Assessment/Plan Chief Complaint/Hosp Course endometrial cancer stage IB Problems: Assessment/Plan A- gradual impvt P- transfer 4W or 6W and adv diet Subjective 24 Hr Interval Summary Free Text/Dictation S- + flatus and tolerating current diet minimally. Minimally OOB. O- Resp- even and effortless CVS- NSR Abd- soft NT Ext- NT no edema A- gradual impvt P- transfer 4W or 6W and adv diet Exam/Review of Systems Vital Signs Vitals Vital Signs Date Time Temp Pulse Resp B/P Pulse Ox O2 Delivery O2 Flow Rate FiO2 06/10/16 20:16 99.0 75 18 158/71 97 06/10/16 19:08 2.0 06/10/16 09:00 Nasal Cannula 06/10/16 05:29 27 Intake and Output 06/09/16 06/09/16 06/10/16 15:00 23:00 07:00 Intake Total 990 ml 630 ml 400 ml Output Total 224 ml 186 ml 725 ml Balance 766 ml 444 ml -325 ml Results Result Diagram: 06/10/16 0543 06/10/16 0543 Results 24 hrs Laboratory Tests Test 06/10/16 05:43 06/10/16 07:54 06/10/16 11:43 06/10/16 17:12 White Blood Count 9.4 # Red Blood Count 4.61 Hemoglobin 11.8 L Hematocrit 37.9 Mean Corpuscular Volume 82.2 Mean Corpuscular Hemoglobin 25.6 L Mean Corpuscular Hemoglobin Concent 31.1 L Red Cell Distribution Width 16.6 H Platelet Count 122 L Mean Platelet Volume 11.1 H Neutrophils % 81.3 H Lymphocytes % 10.7 L Monocytes % 6.5 Eosinophils % 1.1 Basophils % 0.1 Nucleated Red Blood Cells % 0.0 Neutrophils # 7.6 H Lymphocytes # 1.0 Monocytes # 0.6 Eosinophils # 0.1 Basophils # 0.0 Nucleated Red Blood Cells # 0.0 Sodium Level 136 Potassium Level 4.3 Chloride Level 107 Carbon Dioxide Level 27 Anion Gap 6 L Blood Urea Nitrogen 18 Creatinine 0.95 Glucose Level 163 Calcium Level 8.0 L Bedside Glucose 167 132 188 Test 06/10/16 20:23 Bedside Glucose 158 Medications Medications Current Medications Diphenhydramine HCl (Benadryl) 25 mg Q4H PRN IV PRURITUS Last administered on 07:38; Admin Dose 25 MG; Start 06/08/16 at 15:30 Nalbuphine HCl (Nubain) 10 mg Q4H PRN IV PRURITUS; Start 06/08/16 at 15:30 Naloxone HCl (Narcan) 0.2 mg Q2M PRN IV FOR RESP RATE 8 OR LESS; Start at 15:30 Ondansetron HCl (Zofran Inj) 4 mg Q6H PRN IV NAUSEA AND/OR VOMITING Last administered on 06/08/16 23:06; Admin Dose 4 MG; Start 06/08/16 at 16:00 Tramadol HCl (Ultram) 50 mg Q6H PRN PO PAIN; Start 06/08/16 at 15:30 Morphine Sulfate (morphine) 2 mg Q3H PRN IV PAIN Last administered on 09:41; Admin Dose 2 MG; Start 06/08/16 at 15:30 Diagnostic Test (Pha) (Accu-Chek) 1 ea 02 XX Last administered on 06/09/16 02: 26; Admin Dose 1 EA; Start 06/09/16 at 02:00 Miscellaneous Information 1 ea NOTE XX ; Start 06/08/16 at 19:00 Glucose (Glutose) 15 gm Q15M PRN PO DECREASED GLUCOSE; Start 06/08/16 at 19:00 Glucose (Glutose) 22.5 gm Q15M PRN PO DECREASED GLUCOSE; Start 06/08/16 at 19: 00 Dextrose (D50w Syringe) 25 ml Q15M PRN IV DECREASED GLUCOSE; Start 06/08/16 at 19:00 Dextrose (D50w Syringe) 50 ml Q15M PRN IV DECREASED GLUCOSE; Start 06/08/16 at 19:00 Glucagon (Glucagen) 1 mg Q15M PRN IM DECREASED GLUCOSE; Start 06/08/16 at 19:00 Glucose (Glutose) 15 gm Q15M PRN BUCCAL DECREASED GLUCOSE; Start 06/08/16 at 19 :00 Famotidine (Pepcid Iv) 20 mg DAILY IV Last administered on 06/10/16 08:44; Admin Dose 20 MG; Start 06/09/16 at 09:00 Folic Acid (Folic Acid) 1 mg DAILY PO Last administered on 06/10/16 08:45; Admin Dose 1 MG; Start 06/09/16 at 09:00 Insulin Glargine (Lantus) 10 unit DAILY@20 SC Last administered on 06/10/16 20 :53; Admin Dose 10 UNIT; Start 06/08/16 at 21:30 Clonidine 0.1 mg 0.1 mg Q6H PRN PO SBP > 160 Last administered on 06/10/16 07: 23; Admin Dose 0.1 MG; Start 06/09/16 at 01:00 Potassium Cl/ Dextrose/Lact Ringer's (D5-Lr + KCl 20 Meq) 1,000 ml @ 50 mls/hr Q20H IV Last administered on 06/10/16 11:45; Admin Dose 50 MLS/HR; Start 06/09 at 18:00 Hydralazine HCl (Apresoline) 10 mg Q4H PRN IV elevated bp Last administered on 06/10/16 08:44; Admin Dose 10 MG; Start 06/10/16 at 08:00 NONA MORENO MD Jun 10, 2016 23:12
[2016-06-11] MEDS: ACCU-CHEK XX SCH (02:00)
[2016-06-11 06:31] LABS: ADD SCAN DIFF NO
[2016-06-11 06:42] LABS: BASOPHILS % 0.1 % (0.0-2.0); EOSINOPHILS # 0.2 10^3/ul (0.0-0.5); HEMATOCRIT 37.4 % (37.0-47.0); HEMOGLOBIN 11.8 g/dl (12.0-16.0); LYMPHOCYTES % 12.6 % (15.0-51.0); MEAN CORPUSCULAR HEMOGLOBIN 25.6 pg (29.0-33.0); MEAN CORPUSCULAR HGB CONC 31.6 g/dl (32.0-37.0); MEAN CORPUSCULAR VOLUME 81.1 fl (82.0-101.0); MEAN PLATELET VOLUME 10.9 fl (7.4-10.4); MONOCYTE # 0.7 10^3/ul (0.3-0.9); MONOCYTES % 9.4 % (0.0-11.0); NEUTROPHIL # 5.8 10^3/ul (1.6-7.5); NEUTROPHILS % 75.5 % (39.0-77.0); PLATELET COUNT 135 10^3/UL (140-415); RED BLOOD COUNT 4.61 10^6/ul (4.20-5.40); RED CELL DISTRIBUTION WIDTH 16.2 % (11.5-14.5); WHITE BLOOD COUNT 7.7 10^3/ul (4.8-10.8)
[2016-06-11 07:11] LABS: CREATININE 0.86 mg/dl (0.44-1.00)
[2016-06-11 08:05] VITALS: BP 140/72; RESP 20
[2016-06-11] MEDS: FAMOTIDINE 20 MG INJ IV SCH (08:08)
[2016-06-11] MEDS: FOLIC ACID 1 MG TAB PO SCH (08:08)
[2016-06-11] MEDS: INSULIN ASPART [NOVOLOG] 3 ML PEN SC SCH ×4 (08:15→21:15)
[2016-06-11] MEDS: D5-LR + KCL 20 MEQ 1,000 ML IV SCH ×2 (10:00→12:00)
--- NOTE | 2016-06-11 11:23 | CONS ---
Date/Time of Note Date/Time of Note DATE: 06/11/16 TIME: 11:20 Consult Date/Type/Reason Admit Date/Time Jun 08, 2016 at 05:37 Subjective Pt out of ICU, per nursing appears confused at times, but tolerating diet. Objective Vital Signs Date Time Temp Pulse Resp B/P Pulse Ox O2 Delivery O2 Flow Rate FiO2 06/11/16 08:05 99.0 81 20 140/72 98 06/11/16 01:01 2.0 06/10/16 09:00 Nasal Cannula 06/10/16 05:29 27 Intake and Output 06/10/16 06/10/16 06/11/16 15:00 23:00 07:00 Intake Total 390 ml 250 ml 1170 ml Output Total 925 ml 350 ml Balance -535 ml 250 ml 820 ml Exam GENERAL: The patient is lying in bed,no acute distress. HEENT: Pupils equal, round, react to light. Extraocular muscles intact. NECK: Supple, no thyromegaly. LUNGS: Clear to auscultation bilaterally. CARDIOVASCULAR: S1, S2 heard. No rubs or gallops. ABDOMEN: Nondistended hypoactive bowel sounds. Incision is covered in bandages , appear to be clean, dry, and intact. MUSCULOSKELETAL: No lower extremity edema bilaterally. NEUROLOGIC: No focal deficits. Results/Medications Result Diagram: 06/11/1652606/11/16526 Results 24 hrs Laboratory Tests Test 06/10/16 11:43 06/10/16 17:12 06/10/16 20:23 06/11/16 05:27 Bedside Glucose 132 188 158 White Blood Count 7.7 Red Blood Count 4.61 Hemoglobin 11.8 L Hematocrit 37.4 Mean Corpuscular Volume 81.1 L Mean Corpuscular Hemoglobin 25.6 L Mean Corpuscular Hemoglobin Concent 31.6 L Red Cell Distribution Width 16.2 H Platelet Count 135 L Mean Platelet Volume 10.9 H Neutrophils % 75.5 Lymphocytes % 12.6 L Monocytes % 9.4 Eosinophils % 2.0 Basophils % 0.1 Nucleated Red Blood Cells % 0.0 Neutrophils # 5.8 Lymphocytes # 1.0 Monocytes # 0.7 Eosinophils # 0.2 Basophils # 0.0 Nucleated Red Blood Cells # 0.0 Sodium Level 134 L Potassium Level 4.0 Chloride Level 104 Carbon Dioxide Level 25 Anion Gap 9 Blood Urea Nitrogen 17 Creatinine 0.86 Glucose Level 200 Calcium Level 8.0 L Test 06/11/16 07:53 Bedside Glucose 188 Medications Current Medications Diphenhydramine HCl (Benadryl) 25 mg Q4H PRN IV PRURITUS Last administered on 07:38; Admin Dose 25 MG; Start 06/08/16 at 15:30 Nalbuphine HCl (Nubain) 10 mg Q4H PRN IV PRURITUS; Start 06/08/16 at 15:30 Naloxone HCl (Narcan) 0.2 mg Q2M PRN IV FOR RESP RATE 8 OR LESS; Start at 15:30 Ondansetron HCl (Zofran Inj) 4 mg Q6H PRN IV NAUSEA AND/OR VOMITING Last administered on 06/08/16 23:06; Admin Dose 4 MG; Start 06/08/16 at 16:00 Tramadol HCl (Ultram) 50 mg Q6H PRN PO PAIN; Start 06/08/16 at 15:30 Morphine Sulfate (morphine) 2 mg Q3H PRN IV PAIN Last administered on 09:41; Admin Dose 2 MG; Start 06/08/16 at 15:30 Diagnostic Test (Pha) (Accu-Chek) 1 ea 02 XX Last administered on 06/09/16 02: 26; Admin Dose 1 EA; Start 06/09/16 at 02:00 Miscellaneous Information 1 ea NOTE XX ; Start 06/08/16 at 19:00 Glucose (Glutose) 15 gm Q15M PRN PO DECREASED GLUCOSE; Start 06/08/16 at 19:00 Glucose (Glutose) 22.5 gm Q15M PRN PO DECREASED GLUCOSE; Start 06/08/16 at 19: 00 Dextrose (D50w Syringe) 25 ml Q15M PRN IV DECREASED GLUCOSE; Start 06/08/16 at 19:00 Dextrose (D50w Syringe) 50 ml Q15M PRN IV DECREASED GLUCOSE; Start 06/08/16 at 19:00 Glucagon (Glucagen) 1 mg Q15M PRN IM DECREASED GLUCOSE; Start 06/08/16 at 19:00 Glucose (Glutose) 15 gm Q15M PRN BUCCAL DECREASED GLUCOSE; Start 06/08/16 at 19 :00 Famotidine (Pepcid Iv) 20 mg DAILY IV Last administered on 06/11/16 08:08; Admin Dose 20 MG; Start 06/09/16 at 09:00 Folic Acid (Folic Acid) 1 mg DAILY PO Last administered on 06/11/16 08:08; Admin Dose 1 MG; Start 06/09/16 at 09:00 Insulin Glargine (Lantus) 10 unit DAILY@20 SC Last administered on 06/10/16 20 :53; Admin Dose 10 UNIT; Start 06/08/16 at 21:30 Clonidine 0.1 mg 0.1 mg Q6H PRN PO SBP > 160 Last administered on 06/10/16 07: 23; Admin Dose 0.1 MG; Start 06/09/16 at 01:00 Potassium Cl/ Dextrose/Lact Ringer's (D5-Lr + KCl 20 Meq) 1,000 ml @ 50 mls/hr Q20H IV Last administered on 06/10/16 11:45; Admin Dose 50 MLS/HR; Start 06/09 at 18:00 Hydralazine HCl (Apresoline) 10 mg Q4H PRN IV elevated bp Last administered on 06/10/16 08:44; Admin Dose 10 MG; Start 06/10/16 at 08:00 Assessment/Plan Chief Complaint/Hosp Course ASSESSMENT AND PLAN: 76-year-old female status post pelvic and aortic lymph node dissection, hysterectomy, bilateral salpingo-oophorectomy for endometrial cancer stage IV. 1. Status post surgical resection for endometrial cancer - POD # 3. - follow up postop recommendations from primary care team and FLASH WELDER/ONC team, which include pain control medications, IV fluids and labs and any physical therapy. 2. Essential hypertension. Blood pressure is presently stable. - Continue to monitor for now. - will restart some of home medicines as well 3. Type 2 diabetes - FS stable - again continue sliding scale insulin, lantus for now - holding her p.o. diabetic medications from home. 4. History of coronary artery disease. - Continue to monitor for now. 5. History of prior stroke, no apparent present issues. - Continue to monitor for now. 6. History of atrial fibrillation - HR stable - Continue monitoring heart rate on telemetry monitoring. 7. Gastrointestinal prophylaxis. - H2 mariana. 8. Deep venous thrombosis prophylaxis - Sequential compression devices. We will continue to follow along with you. . Problems: RAHI,MISTI S. Jun 11, 2016 11:23
[2016-06-11] MEDS: FERROUS SULFATE (EC) 325 MG TAB PO SCH ×2 (12:01→21:11)
[2016-06-11] MEDS: LISINOPRIL 5 MG TAB PO SCH (12:01)
--- NOTE | 2016-06-11 16:41 | PN ---
Date/Time of Note Date/Time of Note DATE: 06/11/16 TIME: 16:39 Assessment/Plan VTE Prophylaxis VTE Prophylaxis Intervention: SCD's Lines/Catheters IV [facility]ter Type (from [facility]): Peripheral IV Urinary Cath still in place: Yes Assessment/Plan Chief Complaint/Hosp Course endometrial cancer stage IB Problems: Assessment/Plan A- doing well P- OK to discharge from operative perspective if Ok with IM. Subjective 24 Hr Interval Summary Free Text/Dictation S- + flatus and tolerating current diet consistently. More OOB O- Resp- even and effortless CVS- NSR Abd- soft NT Ext- NT no edema A- doing well P- OK to discharge from operative perspective if Ok with IM. Exam/Review of Systems Vital Signs Vitals Vital Signs Date Time Temp Pulse Resp B/P Pulse Ox O2 Delivery O2 Flow Rate FiO2 06/11/16 08:05 99.0 81 20 140/72 98 06/11/16 01:01 2.0 06/10/16 09:00 Nasal Cannula 06/10/16 05:29 27 Intake and Output 06/10/16 06/10/16 06/11/16 15:00 23:00 07:00 Intake Total 390 ml 250 ml 1170 ml Output Total 925 ml 350 ml Balance -535 ml 250 ml 820 ml Results Result Diagram: 06/11/1627 06/11/1627 Results 24 hrs Laboratory Tests Test 06/10/16 17:12 06/10/16 20:23 06/11/16 05:27 06/11/16 07:53 Bedside Glucose 188 158 188 White Blood Count 7.7 Red Blood Count 4.61 Hemoglobin 11.8 L Hematocrit 37.4 Mean Corpuscular Volume 81.1 L Mean Corpuscular Hemoglobin 25.6 L Mean Corpuscular Hemoglobin Concent 31.6 L Red Cell Distribution Width 16.2 H Platelet Count 135 L Mean Platelet Volume 10.9 H Neutrophils % 75.5 Lymphocytes % 12.6 L Monocytes % 9.4 Eosinophils % 2.0 Basophils % 0.1 Nucleated Red Blood Cells % 0.0 Neutrophils # 5.8 Lymphocytes # 1.0 Monocytes # 0.7 Eosinophils # 0.2 Basophils # 0.0 Nucleated Red Blood Cells # 0.0 Sodium Level 134 L Potassium Level 4.0 Chloride Level 104 Carbon Dioxide Level 25 Anion Gap 9 Blood Urea Nitrogen 17 Creatinine 0.86 Glucose Level 200 Calcium Level 8.0 L Test 06/11/16 11:51 Bedside Glucose 226 H Medications Medications Current Medications Diphenhydramine HCl (Benadryl) 25 mg Q4H PRN IV PRURITUS Last administered on 07:38; Admin Dose 25 MG; Start 06/08/16 at 15:30 Nalbuphine HCl (Nubain) 10 mg Q4H PRN IV PRURITUS; Start 06/08/16 at 15:30 Naloxone HCl (Narcan) 0.2 mg Q2M PRN IV FOR RESP RATE 8 OR LESS; Start at 15:30 Ondansetron HCl (Zofran Inj) 4 mg Q6H PRN IV NAUSEA AND/OR VOMITING Last administered on 06/08/16 23:06; Admin Dose 4 MG; Start 06/08/16 at 16:00 Tramadol HCl (Ultram) 50 mg Q6H PRN PO PAIN; Start 06/08/16 at 15:30 Morphine Sulfate (morphine) 2 mg Q3H PRN IV PAIN Last administered on 09:41; Admin Dose 2 MG; Start 06/08/16 at 15:30 Diagnostic Test (Pha) (Accu-Chek) 1 ea 02 XX Last administered on 06/09/16 02: 26; Admin Dose 1 EA; Start 06/09/16 at 02:00 Miscellaneous Information 1 ea NOTE XX ; Start 06/08/16 at 19:00 Glucose (Glutose) 15 gm Q15M PRN PO DECREASED GLUCOSE; Start 06/08/16 at 19:00 Glucose (Glutose) 22.5 gm Q15M PRN PO DECREASED GLUCOSE; Start 06/08/16 at 19: 00 Dextrose (D50w Syringe) 25 ml Q15M PRN IV DECREASED GLUCOSE; Start 06/08/16 at 19:00 Dextrose (D50w Syringe) 50 ml Q15M PRN IV DECREASED GLUCOSE; Start 06/08/16 at 19:00 Glucagon (Glucagen) 1 mg Q15M PRN IM DECREASED GLUCOSE; Start 06/08/16 at 19:00 Glucose (Glutose) 15 gm Q15M PRN BUCCAL DECREASED GLUCOSE; Start 06/08/16 at 19 :00 Famotidine (Pepcid Iv) 20 mg DAILY IV Last administered on 06/11/16 08:08; Admin Dose 20 MG; Start 06/09/16 at 09:00 Folic Acid (Folic Acid) 1 mg DAILY PO Last administered on 06/11/16 08:08; Admin Dose 1 MG; Start 06/09/16 at 09:00 Insulin Glargine (Lantus) 10 unit DAILY@20 SC Last administered on 06/10/16 20 :53; Admin Dose 10 UNIT; Start 06/08/16 at 21:30 Clonidine 0.1 mg 0.1 mg Q6H PRN PO SBP > 160 Last administered on 06/10/16 07: 23; Admin Dose 0.1 MG; Start 06/09/16 at 01:00 Potassium Cl/ Dextrose/Lact Ringer's (D5-Lr + KCl 20 Meq) 1,000 ml @ 50 mls/hr Q20H IV Last administered on 06/11/16 12:00; Admin Dose 50 MLS/HR; Start at 18:00 Hydralazine HCl (Apresoline) 10 mg Q4H PRN IV elevated bp Last administered on 06/10/16 08:44; Admin Dose 10 MG; Start 06/10/16 at 08:00 Atenolol (Tenormin) 25 mg DAILY PO ; Start 06/12/16 at 09:00 Ferrous Sulfate (Ferrous Sulfate (Ec)) 325 mg BID PO Last administered on 12:01; Admin Dose 325 MG; Start 06/11/16 at 11:30 Lisinopril (Zestril) 5 mg DAILY PO Last administered on 06/11/16 12:01; Admin Dose 5 MG; Start 06/11/16 at 11:30 Quetiapine Fumarate (Seroquel) 25 mg HS PO ; Start 06/11/16 at 21:00 NONA MORENO MD Jun 11, 2016 16:41
[2016-06-11 19:19] VITALS: BP 195/87; RESP 20
[2016-06-11] MEDS: QUETIAPINE 25 MG TAB PO SCH (21:11)
[2016-06-11] MEDS: INSULIN GLARGINE [LANtus] 3 ML PEN SC SCH (21:15)
[2016-06-11] MEDS: hydrALAzine 20 MG INJ IV PRN (21:17)
[2016-06-12] MEDS: ACCU-CHEK XX SCH (02:00)
[2016-06-12 04:31] VITALS: BP 155/82; PULSE 91
[2016-06-12] MEDS: D5-LR + KCL 20 MEQ 1,000 ML IV SCH ×2 (06:00→09:50)
[2016-06-12 07:53] VITALS: BP 161/74; RESP 18
[2016-06-12] MEDS: INSULIN ASPART [NOVOLOG] 3 ML PEN SC SCH ×4 (08:02→21:55)
[2016-06-12] MEDS: FAMOTIDINE 20 MG INJ IV SCH (08:32)
[2016-06-12] MEDS: FERROUS SULFATE (EC) 325 MG TAB PO SCH ×2 (08:32→21:00)
[2016-06-12] MEDS: LISINOPRIL 5 MG TAB PO SCH (08:32)
[2016-06-12] MEDS: FOLIC ACID 1 MG TAB PO SCH (08:32)
[2016-06-12] MEDS: ATENOLOL 25 MG TAB PO SCH (08:32)
--- NOTE | 2016-06-12 10:45 | PDOCDIS ---
Discharge Instructions CONDITION Patient Condition: Stable HOME CARE INSTRUCTIONS: Special Diet: MISTI Melendez Jun 12, 2016 10:45
--- NOTE | 2016-06-12 11:16 | DS ---
DATE OF ADMISSION: 06/08/2016 DATE OF DISCHARGE: 06/12/2016 HOSPITAL COURSE: This is a 76-year-old female originally admitted on 06/08/2016 and being [facility] d [facility]12[facility]2016. The patient initially came in status post pelvic and a ortic lymph node dissection, hysterectomy, and bilateral salpingo-oophorectomy for endometrial cance r thought to be stage IB. The RN TRANSITIONAL CARE/ONC surgeon performed the procedure. The patient tolerated it we ll. She spent some time in the intensive care unit to recover and then was transferred to the [facility] floor. She was able to ambulate. Her vital signs were stable after getting her blood pressure medicines. Her sugars were stabilized with insulin regimen. She had some mild confusion after the surgery which was resolving by the time of discharge. She was tolerating diet. Her vital signs wer e stable as well. After getting clearance from the RN TRANSITIONAL CARE/ONC team, she will be discharged to detention facility in an improved condition as that is the recommendation by them. MEDICATIONS: The patient will go with the following medications 1. Atenolol 25 mg daily. 2. Clonidine 0.1 mg q. 6 p.r.n. 3. Benadryl 25 mg p.o. q. 4 p.r.n. 4. Pepcid 20 mg daily. 5. Ferrous sulfate 325 mg b.i.d. 6. Folic acid 1 mg daily. 7. Hydralazine 10 mg IV q. 4 p.r.n. 8. Moderate insulin sliding scale NovoLog insulin 10. 9. Lisinopril 5 mg daily. 10. Morphine 2 mg IV q. 3 hours p.r.n. 11. Zofran 4 mg p.o. q. 6 p.r.n. 12. Seroquel 25 mg at bedtime. 13. Tramadol 50 mg q. 6 p.r.n. She is to follow with primary care doctor in the clinic in the next 1 to 2 weeks. FINAL DIAGNOSES: 1. Endometrial cancer, stage IB, status post pelvic and aortic lymph node dissection, hysterectomy, and BSO for that. 2. Essential hypertension. 3. Type 2 diabetes 4. History of coronary artery disease 5. Prior stroke. 6. History of atrial fibrillation, stable. Time spent on discharging the patient: 45 minutes. Dictated By: MISTI MUNOZ Conf#: [id number] DID#: [id number]
[2016-06-12] MEDS: morphine 2 MG INJ IV PRN (11:48)
[2016-06-12 12:30] VITALS: BP 141/66; PULSE 76; RESP 16
--- NOTE | 2016-06-12 20:12 | PN ---
Date/Time of Note Date/Time of Note DATE: 06/12/16 TIME: 20:11 Assessment/Plan VTE Prophylaxis VTE Prophylaxis Intervention: SCD's Lines/Catheters IV Catheter Type (from Nrs): Peripheral IV Urinary Cath still in place: Yes Assessment/Plan Chief Complaint/Hosp Course endometrial cancer stage IB Problems: Assessment/Plan Comfortable and occasionally OOB, eating more. Awaits SNF transfer. Subjective 24 Hr Interval Summary Free Text/Dictation Comfortable and occasionally OOB, eating more. Awaits SNF transfer. Exam/Review of Systems Vital Signs Vitals Vital Signs Date Time Temp Pulse Resp B/P Pulse Ox O2 Delivery O2 Flow Rate FiO2 06/12/16 12:30 76 16 141/66 06/12/16 07:53 98.1 98 06/11/16 01:01 2.0 06/10/16 09:00 Nasal Cannula 06/10/16 05:29 27 Intake and Output 06/11/16 06/11/16 06/12/16 15:00 23:00 07:00 Intake Total 550 ml 250 ml 840 ml Output Total 1200 ml Balance 550 ml 250 ml -360 ml Results Result Diagram: 06/11/16 0527 06/11/16 0527 Results 24 hrs Laboratory Tests Test 06/11/16 21:08 06/12/16 02:19 06/12/16 07:59 06/12/16 11:57 Bedside Glucose 208 157 130 184 Test 06/12/16 17:16 Bedside Glucose 122 Medications Medications Current Medications Diphenhydramine HCl (Benadryl) 25 mg Q4H PRN IV PRURITUS Last administered on 07:38; Admin Dose 25 MG; Start 06/08/16 at 15:30 Nalbuphine HCl (Nubain) 10 mg Q4H PRN IV PRURITUS; Start 06/08/16 at 15:30 Naloxone HCl (Narcan) 0.2 mg Q2M PRN IV FOR RESP RATE 8 OR LESS; Start at 15:30 Ondansetron HCl (Zofran Inj) 4 mg Q6H PRN IV NAUSEA AND/OR VOMITING Last administered on 06/08/16 23:06; Admin Dose 4 MG; Start 06/08/16 at 16:00 Tramadol HCl (Ultram) 50 mg Q6H PRN PO PAIN; Start 06/08/16 at 15:30 Morphine Sulfate (morphine) 2 mg Q3H PRN IV PAIN Last administered on 06/12/16 11:48; Admin Dose 2 MG; Start 06/08/16 at 15:30 Diagnostic Test (Pha) (Accu-Chek) 1 ea 02 XX Last administered on 06/09/16 02: 26; Admin Dose 1 EA; Start 06/09/16 at 02:00 Miscellaneous Information 1 ea NOTE XX ; Start 06/08/16 at 19:00 Glucose (Glutose) 15 gm Q15M PRN PO DECREASED GLUCOSE; Start 06/08/16 at 19:00 Glucose (Glutose) 22.5 gm Q15M PRN PO DECREASED GLUCOSE; Start 06/08/16 at 19: 00 Dextrose (D50w Syringe) 25 ml Q15M PRN IV DECREASED GLUCOSE; Start 06/08/16 at 19:00 Dextrose (D50w Syringe) 50 ml Q15M PRN IV DECREASED GLUCOSE; Start 06/08/16 at 19:00 Glucagon (Glucagen) 1 mg Q15M PRN IM DECREASED GLUCOSE; Start 06/08/16 at 19:00 Glucose (Glutose) 15 gm Q15M PRN BUCCAL DECREASED GLUCOSE; Start 06/08/16 at 19 :00 Famotidine (Pepcid Iv) 20 mg DAILY IV Last administered on 06/12/16 08:32; Admin Dose 20 MG; Start 06/09/16 at 09:00 Folic Acid (Folic Acid) 1 mg DAILY PO Last administered on 06/12/16 08:32; Admin Dose 1 MG; Start 06/09/16 at 09:00 Insulin Glargine (Lantus) 10 unit DAILY@20 SC Last administered on 06/11/16 21: 15; Admin Dose 10 UNIT; Start 06/08/16 at 21:30 Clonidine 0.1 mg 0.1 mg Q6H PRN PO SBP > 160 Last administered on 06/12/16 11: 49; Admin Dose 0.1 MG; Start 06/09/16 at 01:00 Potassium Cl/ Dextrose/Lact Ringer's (D5-Lr + KCl 20 Meq) 1,000 ml @ 50 mls/hr Q20H IV Last administered on 06/12/16 09:50; Admin Dose 50 MLS/HR; Start at 18:00 Hydralazine HCl (Apresoline) 10 mg Q4H PRN IV elevated bp Last administered on 06/11/16 21:17; Admin Dose 10 MG; Start 06/10/16 at 08:00 Atenolol (Tenormin) 25 mg DAILY PO Last administered on 06/12/16 08:32; Admin Dose 25 MG; Start 06/12/16 at 09:00 Ferrous Sulfate (Ferrous Sulfate (Ec)) 325 mg BID PO Last administered on 08:32; Admin Dose 325 MG; Start 06/11/16 at 11:30 Lisinopril (Zestril) 5 mg DAILY PO Last administered on 06/12/16 08:32; Admin Dose 5 MG; Start 06/11/16 at 11:30 Quetiapine Fumarate (Seroquel) 25 mg HS PO Last administered on 06/11/16 21:11 ; Admin Dose 25 MG; Start 06/11/16 at 21:00 NONA MORENO MD Jun 12, 2016 20:12
[2016-06-12] MEDS: QUETIAPINE 25 MG TAB PO SCH (21:00)
[2016-06-12 21:47] VITALS: BP 137/63; PULSE 58; RESP 18
[2016-06-12] MEDS: INSULIN GLARGINE [LANtus] 3 ML PEN SC SCH (21:53)
[2016-06-13] MEDS: ACCU-CHEK XX SCH (02:00)
[2016-06-13] MEDS: D5-LR + KCL 20 MEQ 1,000 ML IV SCH ×2 (05:34→22:00)
[2016-06-13 07:38] VITALS: BP 174/92; RESP 20
[2016-06-13] MEDS: FOLIC ACID 1 MG TAB PO SCH (08:12)
[2016-06-13] MEDS: FERROUS SULFATE (EC) 325 MG TAB PO SCH ×2 (08:12→20:14)
[2016-06-13] MEDS: FAMOTIDINE 20 MG INJ IV SCH (08:12)
[2016-06-13] MEDS: ATENOLOL 25 MG TAB PO SCH (08:12)
[2016-06-13] MEDS: LISINOPRIL 5 MG TAB PO SCH (08:12)
[2016-06-13] MEDS: INSULIN ASPART [NOVOLOG] 3 ML PEN SC SCH ×4 (08:59→20:10)
[2016-06-13 11:32] VITALS: BP 153/71; PULSE 69; RESP 18
--- NOTE | 2016-06-13 15:30 | PN ---
Date/Time of Note Date/Time of Note DATE: 06/13/16 TIME: 15:28 Assessment/Plan VTE Prophylaxis VTE Prophylaxis Intervention: SCD's Lines/Catheters IV Catheter Type (from Nrs): Peripheral IV Urinary Cath still in place: No Reason Cath still needed: other (indicate) Assessment/Plan Chief Complaint/Hosp Course Chief Complaint/Hosp Course ASSESSMENT AND PLAN: 76-year-old female status post pelvic and aortic lymph node dissection, hysterectomy, bilateral salpingo-oophorectomy for endometrial cancer stage IV. 1. Status post surgical resection for endometrial cancer - POD # 3. - follow up postop recommendations from primary care team and [facility]/ONC team, which include pain control medications, IV fluids and labs and any physical therapy. 2. Essential hypertension. Blood pressure is presently stable. - Continue to monitor for now. - will restart some of home medicines as well 3. Type 2 diabetes - FS stable - again continue sliding scale insulin, lantus for now - holding her p.o. diabetic medications from home. 4. History of coronary artery disease. - Continue to monitor for now. 5. History of prior stroke, no apparent present issues. - Continue to monitor for now. 6. History of atrial fibrillation - HR stable - Continue monitoring heart rate on telemetry monitoring. 7. Gastrointestinal prophylaxis. - H2 mariana. 8. Deep venous thrombosis prophylaxis - Sequential compression devices. Patient will be transferred to Dr. Barnard's service Problems: Subjective 24 Hr Interval Summary Free Text/Dictation Patient denies any chest pain shortness of breath or abdominal pain No nausea vomiting diarrhea Positive bowel movement Family has requested the patient to be transferred to assisted facility waiting for placement Exam/Review of Systems Vital Signs Vitals Vital Signs Date Time Temp Pulse Resp B/P Pulse Ox O2 Delivery O2 Flow Rate FiO2 06/13/16 11:32 69 18 153/71 97 Room Air 06/13/16 07:38 98.2 06/11/16 01:01 2.0 06/10/16 05:29 27 Intake and Output 06/12/16 06/12/16 06/13/16 15:00 23:00 07:00 Intake Total 150 ml 1430 ml 570 ml Output Total 1400 ml Balance 150 ml 30 ml 570 ml Exam General: The patient is well-developed, Not in acute distress. HEENT: Atraumatic, normocephalic. The pupils are equal and round . Neck: Supple with full range of motion. Chest: Normal expansion of the thorax during inspiration Lungs: Clear to auscultation bilaterally Heart: Normal S1-S2, Regular rhythm and rate. Abdomen: Soft , nontender, nondistended , bowel sounds are present. Surgical site is dry and clean Extremities: Normal to inspection, no edema no cyanosis Neurologic: Normal mental status,The patient is awake, alert and oriented . Results Result Diagram: 06/11/16 0527 06/11/16 0527 Results 24 hrs Laboratory Tests Test 06/12/16 17:16 06/12/16 21:41 06/13/16 02:18 06/13/16 08:02 Bedside Glucose 122 205 191 195 Test 06/13/16 08:56 06/13/16 11:58 Bedside Glucose 238 H 122 Medications Medications Current Medications Diphenhydramine HCl (Benadryl) 25 mg Q4H PRN IV PRURITUS Last administered on 07:38; Admin Dose 25 MG; Start 06/08/16 at 15:30 Nalbuphine HCl (Nubain) 10 mg Q4H PRN IV PRURITUS; Start 06/08/16 at 15:30 Naloxone HCl (Narcan) 0.2 mg Q2M PRN IV FOR RESP RATE 8 OR LESS; Start at 15:30 Ondansetron HCl (Zofran Inj) 4 mg Q6H PRN IV NAUSEA AND/OR VOMITING Last administered on 06/08/16 23:06; Admin Dose 4 MG; Start 06/08/16 at 16:00 Tramadol HCl (Ultram) 50 mg Q6H PRN PO PAIN; Start 06/08/16 at 15:30 Morphine Sulfate (morphine) 2 mg Q3H PRN IV PAIN Last administered on 06/12/16 11:48; Admin Dose 2 MG; Start 06/08/16 at 15:30 Diagnostic Test (Pha) (Accu-Chek) 1 ea 02 XX Last administered on 06/09/16 02: 26; Admin Dose 1 EA; Start 06/09/16 at 02:00 Miscellaneous Information 1 ea NOTE XX ; Start 06/08/16 at 19:00 Glucose (Glutose) 15 gm Q15M PRN PO DECREASED GLUCOSE; Start 06/08/16 at 19:00 Glucose (Glutose) 22.5 gm Q15M PRN PO DECREASED GLUCOSE; Start 06/08/16 at 19: 00 Dextrose (D50w Syringe) 25 ml Q15M PRN IV DECREASED GLUCOSE; Start 06/08/16 at 19:00 Dextrose (D50w Syringe) 50 ml Q15M PRN IV DECREASED GLUCOSE; Start 06/08/16 at 19:00 Glucagon (Glucagen) 1 mg Q15M PRN IM DECREASED GLUCOSE; Start 06/08/16 at 19:00 Glucose (Glutose) 15 gm Q15M PRN BUCCAL DECREASED GLUCOSE; Start 06/08/16 at 19 :00 Folic Acid (Folic Acid) 1 mg DAILY PO Last administered on 06/13/16 08:12; Admin Dose 1 MG; Start 06/09/16 at 09:00 Insulin Glargine (Lantus) 10 unit DAILY@20 SC Last administered on 06/12/16 21: 53; Admin Dose 10 UNIT; Start 06/08/16 at 21:30 Clonidine 0.1 mg 0.1 mg Q6H PRN PO SBP > 160 Last administered on 06/12/16 11: 49; Admin Dose 0.1 MG; Start 06/09/16 at 01:00 Potassium Cl/ Dextrose/Lact Ringer's (D5-Lr + KCl 20 Meq) 1,000 ml @ 50 mls/hr Q20H IV Last administered on 06/13/16 05:34; Admin Dose 50 MLS/HR; Start at 18:00 Hydralazine HCl (Apresoline) 10 mg Q4H PRN IV elevated bp Last administered on 06/11/16 21:17; Admin Dose 10 MG; Start 06/10/16 at 08:00 Atenolol (Tenormin) 25 mg DAILY PO Last administered on 06/13/16 08:12; Admin Dose 25 MG; Start 06/12/16 at 09:00 Ferrous Sulfate (Ferrous Sulfate (Ec)) 325 mg BID PO Last administered on 08:12; Admin Dose 325 MG; Start 06/11/16 at 11:30 Lisinopril (Zestril) 5 mg DAILY PO Last administered on 06/13/16 08:12; Admin Dose 5 MG; Start 06/11/16 at 11:30 Quetiapine Fumarate (Seroquel) 25 mg HS PO Last administered on 06/11/16t 21:11 ; Admin Dose 25 MG; Start 06/11/16 at 21:00 Famotidine (Pepcid) 20 mg DAILY PO ; Start 06/14/16 at 09:00 ANTHONY HERNANDEZ MD Jun 13, 2016 15:29
--- NOTE | 2016-06-13 18:45 | PN ---
Date/Time of Note Date/Time of Note DATE: 06/13/16 TIME: 18:44 Assessment/Plan VTE Prophylaxis VTE Prophylaxis Intervention: other Lines/Catheters IV [facility] Type ([facility] Peripheral IV Urinary Cath still in place: No Assessment/Plan Chief Complaint/Hosp Course 1. Endometrial cancer, stage IB, status post pelvic and aortic lymph node dissection, hysterectomy, and BSO for that. 2. Essential hypertension. 3. Type 2 diabetes 4. History of coronary artery disease 5. Prior stroke. 6. History of atrial fibrillation, stable. plan per dr mcdermott\ snf Problems: Subjective 24 Hr Interval Summary Subjective hx not possible: other (asked to see pt) ENT: no complaints Respiratory: no complaints Cardiovascular: no complaints Gastrointestinal: no complaints Genitourinary: no complaints Musculoskeletal: no complaints Skin: no complaints Neurologic: no complaints Endocrine: no complaints Psychological: no complaints Exam/Review of Systems Vital Signs Vitals Vital Signs Date Time Temp Pulse Resp B/P Pulse Ox O2 Delivery O2 Flow Rate FiO2 06/13/16 11:32 69 18 153/71 97 Room Air 06/13/16 07:38 98.2 06/11/16 01:01 2.0 06/10/16 05:29 27 Intake and Output 06/12/16 06/12/16 06/13/16 15:00 23:00 07:00 Intake Total 150 ml 1430 ml 570 ml Output Total 1400 ml Balance 150 ml 30 ml 570 ml Exam Constitutional: alert, oriented Psych: no complaints Head: normocephalic Eyes: nl conjunctiva ENMT: nl external ears & nose Neck: non-tender, supple Respiratory: clear to auscultation Cardiovascular: regular rate and rhythm Musculoskeletal: nl extremities to inspection Neurological: DIRECTOR OF HOME ECONOMICS II-XII intact Results Result Diagram: 06/11/16 0527 06/11/16 0527 Results 24 hrs Laboratory Tests Test 06/12/16 21:41 06/13/16 02:18 06/13/16 08:02 06/13/16 08:56 Bedside Glucose 205 191 195 238 H Test 06/13/16 11:58 06/13/16 17:18 Bedside Glucose 122 179 Medications Medications Current Medications Diphenhydramine HCl (Benadryl) 25 mg Q4H PRN IV PRURITUS Last administered on t 07:38; Admin Dose 25 MG; Start 06/08/16 at 15:30 Nalbuphine HCl (Nubain) 10 mg Q4H PRN IV PRURITUS; Start 06/08/16 at 15:30 Naloxone HCl (Narcan) 0.2 mg Q2M PRN IV FOR RESP RATE 8 OR LESS; Start at 15:30 Ondansetron HCl (Zofran Inj) 4 mg Q6H PRN IV NAUSEA AND/OR VOMITING Last administered on 06/08/16 23:06; Admin Dose 4 MG; Start 06/08/16 at 16:00 Tramadol HCl (Ultram) 50 mg Q6H PRN PO PAIN; Start 06/08/16 at 15:30 Morphine Sulfate (morphine) 2 mg Q3H PRN IV PAIN Last administered on 06/12/16 11:48; Admin Dose 2 MG; Start 06/08/16 at 15:30 Diagnostic Test (Pha) (Accu-Chek) 1 ea 02 XX Last administered on 06/09/16 02: 26; Admin Dose 1 EA; Start 06/09/16 at 02:00 Miscellaneous Information 1 ea NOTE XX ; Start 06/08/16 at 19:00 Glucose (Glutose) 15 gm Q15M PRN PO DECREASED GLUCOSE; Start 06/08/16 at 19:00 Glucose (Glutose) 22.5 gm Q15M PRN PO DECREASED GLUCOSE; Start 06/08/16 at 19: 00 Dextrose (D50w Syringe) 25 ml Q15M PRN IV DECREASED GLUCOSE; Start 06/08/16 at 19:00 Dextrose (D50w Syringe) 50 ml Q15M PRN IV DECREASED GLUCOSE; Start 06/08/16 at 19:00 Glucagon (Glucagen) 1 mg Q15M PRN IM DECREASED GLUCOSE; Start 06/08/16 at 19:00 Glucose (Glutose) 15 gm Q15M PRN BUCCAL DECREASED GLUCOSE; Start 06/08/16 at 19 :00 Folic Acid (Folic Acid) 1 mg DAILY PO Last administered on 06/13/16 08:12; Admin Dose 1 MG; Start 06/09/16 at 09:00 Insulin Glargine (Lantus) 10 unit DAILY@20 SC Last administered on 06/12/16 21: 53; Admin Dose 10 UNIT; Start 06/08/16 at 21:30 Clonidine 0.1 mg 0.1 mg Q6H PRN PO SBP > 160 Last administered on 06/12/16 11: 49; Admin Dose 0.1 MG; Start 06/09/16 at 01:00 Potassium Cl/ Dextrose/Lact Ringer's (D5-Lr + KCl 20 Meq) 1,000 ml @ 50 mls/hr Q20H IV Last administered on 06/13/16 05:34; Admin Dose 50 MLS/HR; Start at 18:00 Hydralazine HCl (Apresoline) 10 mg Q4H PRN IV elevated bp Last administered on 06/11/16 21:17; Admin Dose 10 MG; Start 06/10/16 at 08:00 Atenolol (Tenormin) 25 mg DAILY PO Last administered on 06/13/16 08:12; Admin Dose 25 MG; Start 06/12/16 at 09:00 Ferrous Sulfate (Ferrous Sulfate (Ec)) 325 mg BID PO Last administered on 08:12; Admin Dose 325 MG; Start 06/11/16 at 11:30 Lisinopril (Zestril) 5 mg DAILY PO Last administered on 06/13/16 08:12; Admin Dose 5 MG; Start 06/11/16 at 11:30 Quetiapine Fumarate (Seroquel) 25 mg HS PO Last administered on 06/11/16 21:11 ; Admin Dose 25 MG; Start 06/11/16 at 21:00 Famotidine (Pepcid) 20 mg DAILY PO ; Start 06/14/16 at 09:00 LM JAMES MD Jun 13, 2016 18:45
[2016-06-13 19:00] VITALS: BP 178/108; RESP 18
--- NOTE | 2016-06-13 19:57 | PN ---
Date/Time of Note Date/Time of Note DATE: 06/13/16 TIME: 19:56 Assessment/Plan VTE Prophylaxis VTE Prophylaxis Intervention: SCD's Lines/Catheters IV Catheter Type (from Nrs): Saline Lock Urinary Cath still in place: No Assessment/Plan Chief Complaint/Hosp Course endometrial cancer stage IB Problems: Subjective 24 Hr Interval Summary Free Text/Dictation Comfortable and occasionally OOB, eating more and medical issue stable. Awaits SNF transfer. Exam/Review of Systems Vital Signs Vitals Vital Signs Date Time Temp Pulse Resp B/P Pulse Ox O2 Delivery O2 Flow Rate FiO2 06/13/16 11:32 69 18 153/71 97 Room Air 06/13/16 07:38 98.2 06/11/16 01:01 2.0 06/10/16 05:29 27 Intake and Output 06/12/16 06/12/16 06/13/16 15:00 23:00 07:00 Intake Total 150 ml 1430 ml 570 ml Output Total 1400 ml Balance 150 ml 30 ml 570 ml Results Result Diagram: 06/11/16 0527 06/11/16 0527 Results 24 hrs Laboratory Tests Test 06/12/16 21:41 06/13/16 02:18 06/13/16 08:02 06/13/16 08:56 Bedside Glucose 205 191 195 238 H Test 06/13/16 11:58 06/13/16 17:18 Bedside Glucose 122 179 Medications Medications Current Medications Diphenhydramine HCl (Benadryl) 25 mg Q4H PRN IV PRURITUS Last administered on 07:38; Admin Dose 25 MG; Start 06/08/16 at 15:30 Nalbuphine HCl (Nubain) 10 mg Q4H PRN IV PRURITUS; Start 06/08/16 at 15:30 Naloxone HCl (Narcan) 0.2 mg Q2M PRN IV FOR RESP RATE 8 OR LESS; Start at 15:30 Ondansetron HCl (Zofran Inj) 4 mg Q6H PRN IV NAUSEA AND/OR VOMITING Last administered on 06/08/16 23:06; Admin Dose 4 MG; Start 06/08/16 at 16:00 Tramadol HCl (Ultram) 50 mg Q6H PRN PO PAIN; Start 06/08/16 at 15:30 Morphine Sulfate (morphine) 2 mg Q3H PRN IV PAIN Last administered on 06/12/16 11:48; Admin Dose 2 MG; Start 06/08/16 at 15:30 Diagnostic Test (Pha) (Accu-Chek) 1 ea 02 XX Last administered on 06/09/16 02: 26; Admin Dose 1 EA; Start 06/09/16 at 02:00 Miscellaneous Information 1 ea NOTE XX ; Start 06/08/16 at 19:00 Glucose (Glutose) 15 gm Q15M PRN PO DECREASED GLUCOSE; Start 06/08/16 at 19:00 Glucose (Glutose) 22.5 gm Q15M PRN PO DECREASED GLUCOSE; Start 06/08/16 at 19: 00 Dextrose (D50w Syringe) 25 ml Q15M PRN IV DECREASED GLUCOSE; Start 06/08/16 at 19:00 Dextrose (D50w Syringe) 50 ml Q15M PRN IV DECREASED GLUCOSE; Start 06/08/16 at 19:00 Glucagon (Glucagen) 1 mg Q15M PRN IM DECREASED GLUCOSE; Start 06/08/16 at 19:00 Glucose (Glutose) 15 gm Q15M PRN BUCCAL DECREASED GLUCOSE; Start 06/08/16 at 19 :00 Folic Acid (Folic Acid) 1 mg DAILY PO Last administered on 06/13/16 08:12; Admin Dose 1 MG; Start 06/09/16 at 09:00 Insulin Glargine (Lantus) 10 unit DAILY@20 SC Last administered on 06/12/16 21: 53; Admin Dose 10 UNIT; Start 06/08/16 at 21:30 Clonidine 0.1 mg 0.1 mg Q6H PRN PO SBP > 160 Last administered on 06/12/16 11: 49; Admin Dose 0.1 MG; Start 06/09/16 at 01:00 Potassium Cl/ Dextrose/Lact Ringer's (D5-Lr + KCl 20 Meq) 1,000 ml @ 50 mls/hr Q20H IV Last administered on 06/13/16 05:34; Admin Dose 50 MLS/HR; Start at 18:00 Hydralazine HCl (Apresoline) 10 mg Q4H PRN IV elevated bp Last administered on 06/11/16 21:17; Admin Dose 10 MG; Start 06/10/16 at 08:00 Atenolol (Tenormin) 25 mg DAILY PO Last administered on 06/13/16 08:12; Admin Dose 25 MG; Start 06/12/16 at 09:00 Ferrous Sulfate (Ferrous Sulfate (Ec)) 325 mg BID PO Last administered on 08:12; Admin Dose 325 MG; Start 06/11/16 at 11:30 Lisinopril (Zestril) 5 mg DAILY PO Last administered on 06/13/16 08:12; Admin Dose 5 MG; Start 06/11/16 at 11:30 Quetiapine Fumarate (Seroquel) 25 mg HS PO Last administered on 06/11/16 21:11 ; Admin Dose 25 MG; Start 06/11/16 at 21:00 Famotidine (Pepcid) 20 mg DAILY PO ; Start 06/14/16 at 09:00 NONA MORENO MD Jun 13, 2016 19:57
[2016-06-13] MEDS: QUETIAPINE 25 MG TAB PO SCH (20:14)
[2016-06-13] MEDS: INSULIN GLARGINE [LANtus] 3 ML PEN SC SCH (21:42)
[2016-06-13 22:00] VITALS: BP 142/67
[2016-06-14] MEDS: D5-LR + KCL 20 MEQ 1,000 ML IV SCH ×2 (01:41→18:00)
[2016-06-14] MEDS: ACCU-CHEK XX SCH (01:45)
[2016-06-14 07:31] VITALS: BP 196/86; RESP 20
[2016-06-14] MEDS: INSULIN ASPART [NOVOLOG] 3 ML PEN SC SCH ×3 (08:15→18:00)
[2016-06-14] MEDS: FERROUS SULFATE (EC) 325 MG TAB PO SCH (08:33)
[2016-06-14] MEDS: FOLIC ACID 1 MG TAB PO SCH (08:33)
[2016-06-14] MEDS: ATENOLOL 25 MG TAB PO SCH (08:37)
[2016-06-14] MEDS: LISINOPRIL 5 MG TAB PO SCH (08:37)
[2016-06-14] MEDS ORDERED: FAMOTIDINE 20 MG TAB PO SCH (09:00)
[2016-06-14 16:17] VITALS: BP 141/61; PULSE 73
[2016-06-14 17:55] VITALS: BP 143/67
== END 2016-06-14 18:00 | DRG 741 ==
LOC: REC 06-08 05:37 → ICU 06-08 15:18 → MS2 06-10 10:32
PROVIDERS: ADMIT Internal Medicine Nephrology; ATTEND Internal Medicine Nephrology
PROC: 0UT74ZZ Resection of Bilateral Fallopian Tubes, Percutaneous Endoscopic Approach (ICD-10-PCS; 2016-06-08)
PROC: 0UT24ZZ Resection of Bilateral Ovaries, Percutaneous Endoscopic Approach (ICD-10-PCS; 2016-06-08)
PROC: 07BC4ZZ Excision of Pelvis Lymphatic, Percutaneous Endoscopic Approach (ICD-10-PCS; 2016-06-08)
PROC: 0UT94ZZ Resection of Uterus, Percutaneous Endoscopic Approach (ICD-10-PCS; principal; 2016-06-08 10:00)
DX: C54.1 Malignant neoplasm of endometrium (principal); I48.91 Unspecified atrial fibrillation; E11.9 Type 2 diabetes mellitus without complications; I10 Essential (primary) hypertension; Z86.73 Personal history of transient ischemic attack (TIA), and cerebral infarction without residual deficits; I25.10 Atherosclerotic heart disease of native coronary artery without angina pectoris
CPT/HCPCS: 80048; 82962; 85025; 86850; 86900; 86901; 86920; 87081; 88104; 88307; 97162; J1940; J0131; J0360; J0690; J1200; J1644; J1815; J2250; J2270; J2274; J2405; J2795; J3480; J7030; P9047